=== PATIENT | male | born 1955 | race Caucasian/White ===

== ENCOUNTER 2016-09-09 11:03 | Inpatient (IN) | payer MEDICARE, MEDICAID ==
[~2016-09-09] VITALS: Ht 185.4 cm; Wt 59.0 kg
[~2016-09-09 11:03] MED LIST: DIPH50 PO; DIVA500T35 PO; FERR-89 PO; PANT40TA25 PO; QUET200T PO; SIMV-260 PO; TRIH5TAB2 PO
[2016-09-09 12:14] VITALS: BP 135/99
[2016-09-09] MEDS ORDERED: LORazepam 2 MG TABLET PO PRN (12:30)
[2016-09-09 13:35] VITALS: BP 96/64
[2016-09-09] MEDS: DIVALPROEX SODIUM 500 MG DR TABLET PO SCH ×2 (13:37→17:54)
[2016-09-09] MEDS: TRIHEXYPHENIDYL HCL 5 MG TABLET PO SCH ×2 (13:37→17:54)
[2016-09-09] MEDS: NICOTINE 14 MG/24 HOUR PATCH TD SCH (14:23)
[2016-09-09] MEDS ORDERED: -PHARMACY VACCINE NOTE- MISC ONE ×4 (14:30→18:15)
[2016-09-09 16:22] VITALS: BP 100/67
[2016-09-09] MEDS: FERROUS SULFATE 325 MG EC TABLET PO SCH (17:00)
[2016-09-09] MEDS ORDERED: HALOPERIDOL 10 MG TABLET PO SCH (21:00)
[2016-09-09] MEDS: SIMVASTATIN 20 MG TABLET PO SCH (21:00)
[2016-09-09] MEDS: QUEtiapine FUMARATE 300 MG TABLET PO SCH (21:02)
[2016-09-09] MEDS: DiphenhydrAMINE HCL 25 MG CAPSULE PO SCH (21:02)
[2016-09-10 00:10] VITALS: BP 115/76
[2016-09-10] MEDS: FERROUS SULFATE 325 MG EC TABLET PO SCH ×3 (07:00→17:00)
[2016-09-10 08:26] VITALS: BP 126/67
[2016-09-10] MEDS: DIVALPROEX SODIUM 500 MG DR TABLET PO SCH ×3 (09:53→16:25)
[2016-09-10] MEDS: TRIHEXYPHENIDYL HCL 5 MG TABLET PO SCH ×3 (09:53→16:25)
[2016-09-10] MEDS: PANTOPRAZOLE SODIUM 40 MG DR TABLET PO SCH (09:54)
[2016-09-10] MEDS: NICOTINE 14 MG/24 HOUR PATCH TD SCH (09:54)
[2016-09-10 16:08] VITALS: BP 98/60
[2016-09-10] MEDS: DiphenhydrAMINE HCL 25 MG CAPSULE PO SCH (20:14)
[2016-09-10] MEDS: QUEtiapine FUMARATE 300 MG TABLET PO SCH (20:14)
[2016-09-10] MEDS: SIMVASTATIN 20 MG TABLET PO SCH (21:00)
[2016-09-10] MEDS: HALOPERIDOL 5 MG TABLET PO SCH (21:00)
[2016-09-11 00:01] VITALS: BP 107/62
[2016-09-11] MEDS: FERROUS SULFATE 325 MG EC TABLET PO SCH ×3 (06:50→17:00)
[2016-09-11 08:33] VITALS: BP 101/64
[2016-09-11] MEDS: DIVALPROEX SODIUM 500 MG DR TABLET PO SCH ×3 (11:37→17:00)
[2016-09-11] MEDS: PANTOPRAZOLE SODIUM 40 MG DR TABLET PO SCH (11:37)
[2016-09-11] MEDS: TRIHEXYPHENIDYL HCL 5 MG TABLET PO SCH ×3 (11:37→17:00)
[2016-09-11] MEDS: NICOTINE 14 MG/24 HOUR PATCH TD SCH (11:37)
[2016-09-11 16:02] VITALS: BP 104/64
[2016-09-11] MEDS: HALOPERIDOL 5 MG TABLET PO SCH (20:36)
[2016-09-11] MEDS: SIMVASTATIN 20 MG TABLET PO SCH (20:36)
[2016-09-11] MEDS: DiphenhydrAMINE HCL 25 MG CAPSULE PO SCH (20:36)
[2016-09-12 05:53] VITALS: BP 110/70
[2016-09-12] MEDS: FERROUS SULFATE 325 MG EC TABLET PO SCH ×3 (06:32→16:51)
[2016-09-12 08:10] VITALS: BP 114/71
[2016-09-12 08:18] LABS: BASOPHILS # (AUTO) 0.03 K/uL (0.00-0.20); BASOPHILS % (AUTO) 0.4 % (0.0-2.0); EOSINOPHILS # (AUTO) 0.17 K/uL (0.00-0.70); EOSINOPHILS % (AUTO) 2.45 % (1.0-6.0); HEMATOCRIT 31.3 % (41-53); HEMOGLOBIN 10.5 g/dL (13.5-17.5); LYMPHOCYTES # (AUTO) 1.8 K/uL (1.0-4.8); MEAN CORPUSCULAR HEMOGLOBIN 32.8 pg (26.0-34.0); MEAN CORPUSCULAR HGB CONC 33.7 G/dL (31.0-37.0); MEAN CORPUSCULAR VOLUME 97 fL (80-100); MONOCYTES % (AUTO) 13.8 % (2.0-9.0); NEUTROPHILS # (AUTO) 4.1 K/uL (1.8-7.7); NEUTROPHILS % (AUTO) 58.3 % (40.0-70.0); PLATELET COUNT (AUTO) 125 K/uL (150-450); RED BLOOD CELL COUNT(AUTO) 3.22 MIL/uL (4.50-5.90); RED CELL DISTRIBUTION WIDTH 13.6 % (11.5-14.5); WHITE BLOOD COUNT (AUTO) 7.1 K/uL (4.5-11.0)
[2016-09-12 08:37] LABS: ALBUMIN 2.4 g/dL (3.4-5.0); BILIRUBIN,TOTAL 0.2 mg/dL (0.1-1.0); CALCIUM, TOTAL 7.9 mg/dL (8.8-10.5); CREATININE 1.27 mg/dL (0.60-1.30); POTASSIUM 4.5 mmol/L (3.5-5.1); TOTAL PROTEIN, SERUM 6.1 g/dL (6.4-8.2)
[2016-09-12] MEDS: NICOTINE 14 MG/24 HOUR PATCH TD SCH (09:00)
[2016-09-12] MEDS: TRIHEXYPHENIDYL HCL 5 MG TABLET PO SCH ×3 (09:00→16:51)
[2016-09-12] MEDS: DIVALPROEX SODIUM 500 MG DR TABLET PO SCH ×3 (09:00→16:50)
[2016-09-12] MEDS: PANTOPRAZOLE SODIUM 40 MG DR TABLET PO SCH (09:00)
[2016-09-12 16:07] VITALS: BP 101/68
[2016-09-12] MEDS: HALOPERIDOL 5 MG TABLET PO SCH (21:05)
[2016-09-12] MEDS: SIMVASTATIN 20 MG TABLET PO SCH (21:05)
[2016-09-12] MEDS: DiphenhydrAMINE HCL 25 MG CAPSULE PO SCH (21:05)
[2016-09-13] MEDS: FERROUS SULFATE 325 MG EC TABLET PO SCH ×3 (06:26→16:37)
[2016-09-13 06:39] VITALS: BP 111/65
[2016-09-13 08:14] VITALS: BP 103/46
[2016-09-13] MEDS: MULTIVITAMINS WITH IRON TABLET PO SCH (09:18)
[2016-09-13] MEDS: TRIHEXYPHENIDYL HCL 5 MG TABLET PO SCH ×3 (09:18→16:38)
[2016-09-13] MEDS: DIVALPROEX SODIUM 500 MG DR TABLET PO SCH ×3 (09:18→16:38)
[2016-09-13] MEDS: PANTOPRAZOLE SODIUM 40 MG DR TABLET PO SCH (09:19)
[2016-09-13] MEDS: NICOTINE 14 MG/24 HOUR PATCH TD SCH (09:19)
[2016-09-13 16:11] VITALS: BP 133/62
[2016-09-13] MEDS: SIMVASTATIN 20 MG TABLET PO SCH (20:35)
[2016-09-13] MEDS: DiphenhydrAMINE HCL 25 MG CAPSULE PO SCH (20:35)
[2016-09-13] MEDS: HALOPERIDOL 5 MG TABLET PO SCH (20:36)
[2016-09-14 00:10] VITALS: BP 93/52
[2016-09-14 05:38] VITALS: BP 103/62
[2016-09-14] MEDS: FERROUS SULFATE 325 MG EC TABLET PO SCH ×3 (06:06→16:15)
[2016-09-14 08:21] VITALS: BP 103/67
[2016-09-14] MEDS: NICOTINE 14 MG/24 HOUR PATCH TD SCH (09:00)
[2016-09-14] MEDS: TRIHEXYPHENIDYL HCL 5 MG TABLET PO SCH ×3 (09:35→16:15)
[2016-09-14] MEDS: PANTOPRAZOLE SODIUM 40 MG DR TABLET PO SCH (09:35)
[2016-09-14] MEDS: DIVALPROEX SODIUM 500 MG DR TABLET PO SCH ×3 (09:35→16:15)
[2016-09-14] MEDS: MULTIVITAMINS WITH IRON TABLET PO SCH (09:36)
[2016-09-14 16:04] VITALS: BP 104/61
[2016-09-14] MEDS: DiphenhydrAMINE HCL 25 MG CAPSULE PO SCH (20:07)
[2016-09-14] MEDS: HALOPERIDOL 5 MG TABLET PO SCH (20:07)
[2016-09-14] MEDS: SIMVASTATIN 20 MG TABLET PO SCH (20:07)
[2016-09-15 00:45] VITALS: BP 107/68
[2016-09-15] MEDS: FERROUS SULFATE 325 MG EC TABLET PO SCH ×3 (06:48→16:46)
[2016-09-15 08:46] VITALS: BP 119/74
[2016-09-15] MEDS: DIVALPROEX SODIUM 500 MG DR TABLET PO SCH ×3 (09:55→16:46)
[2016-09-15] MEDS: TRIHEXYPHENIDYL HCL 5 MG TABLET PO SCH ×3 (09:55→16:46)
[2016-09-15] MEDS: PANTOPRAZOLE SODIUM 40 MG DR TABLET PO SCH (09:55)
[2016-09-15] MEDS: MULTIVITAMINS WITH IRON TABLET PO SCH (09:55)
[2016-09-15] MEDS: NICOTINE 14 MG/24 HOUR PATCH TD SCH (09:55)
[2016-09-15 16:13] VITALS: BP 107/67
[2016-09-15] MEDS: HALOPERIDOL 5 MG TABLET PO SCH (20:33)
[2016-09-15] MEDS: DiphenhydrAMINE HCL 25 MG CAPSULE PO SCH (20:33)
[2016-09-15] MEDS: SIMVASTATIN 20 MG TABLET PO SCH (20:33)
[2016-09-16 00:10] VITALS: BP 104/67
[2016-09-16] MEDS: FERROUS SULFATE 325 MG EC TABLET PO SCH ×3 (07:08→16:44)
[2016-09-16 08:35] VITALS: BP 105/65
[2016-09-16] MEDS: TRIHEXYPHENIDYL HCL 5 MG TABLET PO SCH ×3 (09:30→16:44)
[2016-09-16] MEDS: DIVALPROEX SODIUM 500 MG DR TABLET PO SCH ×3 (09:30→16:44)
[2016-09-16] MEDS: PANTOPRAZOLE SODIUM 40 MG DR TABLET PO SCH (09:31)
[2016-09-16] MEDS: MULTIVITAMINS WITH IRON TABLET PO SCH (09:31)
[2016-09-16] MEDS: NICOTINE 14 MG/24 HOUR PATCH TD SCH (09:31)
[2016-09-16 16:46] VITALS: BP 101/61
[2016-09-16] MEDS: HALOPERIDOL 5 MG TABLET PO SCH (20:44)
[2016-09-16] MEDS: DiphenhydrAMINE HCL 25 MG CAPSULE PO SCH (20:44)
[2016-09-16] MEDS: SIMVASTATIN 20 MG TABLET PO SCH (20:44)
[2016-09-17] MEDS: FERROUS SULFATE 325 MG EC TABLET PO SCH ×3 (06:02→17:01)
[2016-09-17 06:08] VITALS: BP 101/64
[2016-09-17 08:19] VITALS: BP 113/52
[2016-09-17] MEDS: DIVALPROEX SODIUM 500 MG DR TABLET PO SCH ×3 (10:32→17:01)
[2016-09-17] MEDS: MULTIVITAMINS WITH IRON TABLET PO SCH (10:32)
[2016-09-17] MEDS: NICOTINE 14 MG/24 HOUR PATCH TD SCH (10:32)
[2016-09-17] MEDS: PANTOPRAZOLE SODIUM 40 MG DR TABLET PO SCH (10:32)
[2016-09-17] MEDS: TRIHEXYPHENIDYL HCL 5 MG TABLET PO SCH ×3 (10:32→17:01)
[2016-09-17 12:41] VITALS: BP 94/57
[2016-09-17 16:11] VITALS: BP 106/65
[2016-09-17] MEDS: DiphenhydrAMINE HCL 25 MG CAPSULE PO SCH (20:05)
[2016-09-17] MEDS: HALOPERIDOL 5 MG TABLET PO SCH (20:06)
[2016-09-17] MEDS: SIMVASTATIN 20 MG TABLET PO SCH (20:06)
[2016-09-18] MEDS: FERROUS SULFATE 325 MG EC TABLET PO SCH ×3 (06:51→16:43)
[2016-09-18 06:52] VITALS: BP 103/63
[2016-09-18 08:26] VITALS: BP 89/48
[2016-09-18] MEDS: NICOTINE 14 MG/24 HOUR PATCH TD SCH (08:59)
[2016-09-18] MEDS: TRIHEXYPHENIDYL HCL 5 MG TABLET PO SCH ×3 (08:59→16:42)
[2016-09-18] MEDS: PANTOPRAZOLE SODIUM 40 MG DR TABLET PO SCH (08:59)
[2016-09-18] MEDS: DIVALPROEX SODIUM 500 MG DR TABLET PO SCH ×3 (08:59→17:00)
[2016-09-18] MEDS: MULTIVITAMINS WITH IRON TABLET PO SCH (08:59)
[2016-09-18 11:19] VITALS: BP 95/60
[2016-09-18 17:07] VITALS: BP 101/61
[2016-09-18 20:15] VITALS: BP 106/66
[2016-09-18] MEDS: SIMVASTATIN 20 MG TABLET PO SCH (20:20)
[2016-09-18] MEDS: DiphenhydrAMINE HCL 25 MG CAPSULE PO SCH (20:20)
[2016-09-18] MEDS: HALOPERIDOL 5 MG TABLET PO SCH (20:21)
[2016-09-19 03:30] VITALS: BP 105/72
[2016-09-19] MEDS: FERROUS SULFATE 325 MG EC TABLET PO SCH ×3 (06:57→16:46)
[2016-09-19 08:34] VITALS: BP 117/75
[2016-09-19] MEDS: DIVALPROEX SODIUM 500 MG DR TABLET PO SCH ×3 (08:47→16:46)
[2016-09-19] MEDS: TRIHEXYPHENIDYL HCL 5 MG TABLET PO SCH ×3 (08:47→16:46)
[2016-09-19] MEDS: PANTOPRAZOLE SODIUM 40 MG DR TABLET PO SCH (08:47)
[2016-09-19] MEDS: MULTIVITAMINS WITH IRON TABLET PO SCH (08:47)
[2016-09-19] MEDS: NICOTINE 14 MG/24 HOUR PATCH TD SCH (09:00)
[2016-09-19 16:25] VITALS: BP 105/68
[2016-09-19] MEDS: HALOPERIDOL 5 MG TABLET PO SCH (20:40)
[2016-09-19] MEDS: DiphenhydrAMINE HCL 25 MG CAPSULE PO SCH (20:40)
[2016-09-19] MEDS: SIMVASTATIN 20 MG TABLET PO SCH (20:40)
[2016-09-20 03:30] VITALS: BP 103/60
[2016-09-20] MEDS: FERROUS SULFATE 325 MG EC TABLET PO SCH ×3 (06:39→17:08)
[2016-09-20 08:23] VITALS: BP 101/60
[2016-09-20] MEDS: DIVALPROEX SODIUM 500 MG DR TABLET PO SCH ×3 (08:41→17:06)
[2016-09-20] MEDS: PANTOPRAZOLE SODIUM 40 MG DR TABLET PO SCH (08:41)
[2016-09-20] MEDS: MULTIVITAMINS WITH IRON TABLET PO SCH (08:41)
[2016-09-20] MEDS: NICOTINE 14 MG/24 HOUR PATCH TD SCH (08:42)
[2016-09-20] MEDS: TRIHEXYPHENIDYL HCL 5 MG TABLET PO SCH ×3 (08:42→17:08)
[2016-09-20 16:15] VITALS: BP 100/62
[2016-09-20] MEDS: SIMVASTATIN 20 MG TABLET PO SCH (20:39)
[2016-09-20] MEDS: HALOPERIDOL 5 MG TABLET PO SCH (20:39)
[2016-09-20] MEDS: DiphenhydrAMINE HCL 25 MG CAPSULE PO SCH (20:39)
[2016-09-20] MEDS ORDERED: HALO10 PO (23:23)
[2016-09-21 00:24] VITALS: BP 100/60
[2016-09-21] MEDS: FERROUS SULFATE 325 MG EC TABLET PO SCH (06:23)
[2016-09-21] MEDS: NICOTINE 14 MG/24 HOUR PATCH TD SCH (09:00)
[2016-09-21 09:11] VITALS: BP 108/62
[2016-09-21] MEDS: PANTOPRAZOLE SODIUM 40 MG DR TABLET PO SCH (09:33)
[2016-09-21] MEDS: TRIHEXYPHENIDYL HCL 5 MG TABLET PO SCH (09:33)
[2016-09-21] MEDS: MULTIVITAMINS WITH IRON TABLET PO SCH (09:33)
[2016-09-21] MEDS: DIVALPROEX SODIUM 500 MG DR TABLET PO SCH (09:33)
== END 2016-09-21 10:15 | disposition home or self-care (01) | DRG 885 ==
LOC: B2X 12:43
PROVIDERS: ADMIT Psychiatry & Neurology Psychiatry; ATTEND Psychiatry & Neurology Psychiatry
DX: F20.0 Paranoid schizophrenia (principal); Z68.1 Body mass index [BMI] 19.9 or less, adult; E46 Unspecified protein-calorie malnutrition; E78.5 Hyperlipidemia, unspecified; B19.20 Unspecified viral hepatitis C without hepatic coma; K21.9 Gastro-esophageal reflux disease without esophagitis; D64.9 Anemia, unspecified; F19.90 Other psychoactive substance use, unspecified, uncomplicated; F41.9 Anxiety disorder, unspecified; Z98.890 Other specified postprocedural states; Z88.8 Allergy status to other drugs, medicaments and biological substances

== ENCOUNTER 2016-11-10 12:24 | Inpatient (IN) | payer MEDICARE, MEDICAID ==
[~2016-11-10] VITALS: Ht 185.4 cm; Wt 65.0 kg
[~2016-11-10 12:24] MED LIST changes: -FERR-89 PO; +FERS325 PO; +HALO10 PO; -QUET200T PO; -SIMV-260 PO; +SIMV20 PO
[2016-11-10] MEDS ORDERED: LORazepam 2 MG TABLET PO PRN (13:00)
[2016-11-10] MEDS ORDERED: HALOPERIDOL 5 MG TABLET PO PRN (13:00)
[2016-11-10 14:19] VITALS: BP 102/60
[2016-11-10 15:10] VITALS: BP 102/65
[2016-11-10] MEDS: TRIHEXYPHENIDYL HCL 5 MG TABLET PO SCH ×2 (16:57→17:00)
[2016-11-10 16:58] VITALS: BP 106/68
[2016-11-10] MEDS: DIVALPROEX SODIUM 500 MG DR TABLET PO SCH ×2 (16:58→17:00)
[2016-11-10] MEDS: FERROUS SULFATE 325 MG EC TABLET PO SCH (16:58)
[2016-11-10] MEDS ORDERED: FERROUS SULFATE 325 MG EC TABLET PO SCH (17:00)
[2016-11-10] MEDS: DiphenhydrAMINE HCL 25 MG CAPSULE PO SCH (20:05)
[2016-11-10] MEDS: SIMVASTATIN 20 MG TABLET PO SCH (20:06)
[2016-11-10] MEDS: HALOPERIDOL 5 MG TABLET PO SCH (20:06)
[2016-11-10] MEDS ORDERED: SIMVASTATIN 20 MG TABLET PO SCH (21:00)
[2016-11-11 00:10] VITALS: BP 102/62
[2016-11-11] MEDS: FERROUS SULFATE 325 MG EC TABLET PO SCH ×3 (06:30→17:10)
[2016-11-11 08:45] VITALS: BP 104/68
[2016-11-11] MEDS ORDERED: PANTOPRAZOLE SODIUM 40 MG DR TABLET PO SCH (09:00)
[2016-11-11] MEDS: TRIHEXYPHENIDYL HCL 5 MG TABLET PO SCH ×3 (09:13→17:10)
[2016-11-11] MEDS: MULTIVITAMINS WITH IRON TABLET PO SCH (09:14)
[2016-11-11] MEDS: PANTOPRAZOLE SODIUM 40 MG DR TABLET PO SCH (09:14)
[2016-11-11] MEDS: DIVALPROEX SODIUM 500 MG DR TABLET PO SCH ×3 (09:14→17:10)
[2016-11-11 16:06] VITALS: BP 102/75
[2016-11-11] MEDS: DiphenhydrAMINE HCL 25 MG CAPSULE PO SCH (20:05)
[2016-11-11] MEDS: SIMVASTATIN 20 MG TABLET PO SCH (20:05)
[2016-11-11] MEDS: HALOPERIDOL 5 MG TABLET PO SCH (20:05)
[2016-11-12 04:11] VITALS: BP 132/87
[2016-11-12] MEDS: FERROUS SULFATE 325 MG EC TABLET PO SCH ×3 (06:08→16:33)
[2016-11-12 07:35] LABS: BASOPHILS # (AUTO) 0.03 K/uL (0.00-0.20); BASOPHILS % (AUTO) 0.7 % (0.0-2.0); EOSINOPHILS # (AUTO) 0.09 K/uL (0.00-0.70); EOSINOPHILS % (AUTO) 1.89 % (1.0-6.0); HEMATOCRIT 30.8 % (41-53); HEMOGLOBIN 10.3 g/dL (13.5-17.5); LYMPHOCYTES # (AUTO) 1.7 K/uL (1.0-4.8); MEAN CORPUSCULAR HEMOGLOBIN 32.9 pg (26.0-34.0); MEAN CORPUSCULAR HGB CONC 33.5 G/dL (31.0-37.0); MEAN CORPUSCULAR VOLUME 98 fL (80-100); MONOCYTES # (AUTO) 0.8 K/uL (0.1-1.0); MONOCYTES % (AUTO) 17.4 % (2.0-9.0); PLATELET COUNT (AUTO) 104 K/uL (150-450); RED BLOOD CELL COUNT(AUTO) 3.13 MIL/uL (4.50-5.90); RED CELL DISTRIBUTION WIDTH 14.5 % (11.5-14.5); WHITE BLOOD COUNT (AUTO) 4.6 K/uL (4.5-11.0)
[2016-11-12 08:10] LABS: CHOL/HDL RATIO 3.1 (4.2-7.3)
[2016-11-12] MEDS: TRIHEXYPHENIDYL HCL 5 MG TABLET PO SCH ×3 (09:02→16:33)
[2016-11-12] MEDS: DIVALPROEX SODIUM 500 MG DR TABLET PO SCH ×3 (09:02→16:33)
[2016-11-12] MEDS: MULTIVITAMINS WITH IRON TABLET PO SCH (09:02)
[2016-11-12] MEDS: PANTOPRAZOLE SODIUM 40 MG DR TABLET PO SCH (09:02)
[2016-11-12 09:19] VITALS: BP 113/60
[2016-11-12] MEDS: DiphenhydrAMINE HCL 25 MG CAPSULE PO SCH (20:20)
[2016-11-12] MEDS: SIMVASTATIN 20 MG TABLET PO SCH (20:20)
[2016-11-12] MEDS: HALOPERIDOL 5 MG TABLET PO SCH (20:20)
[2016-11-13 01:14] VITALS: BP 113/70
[2016-11-13] MEDS: FERROUS SULFATE 325 MG EC TABLET PO SCH ×3 (06:40→17:29)
[2016-11-13 08:28] VITALS: BP 109/67
[2016-11-13 08:41] LABS: BASOPHILS % (AUTO) 0.4 % (0.0-2.0); EOSINOPHILS % (AUTO) 1.8 % (1.0-6.0); HEMATOCRIT 32.3 % (41-53); HEMOGLOBIN 10.6 g/dL (13.5-17.5); LYMPHOCYTES # (AUTO) 1.8 K/uL (1.0-4.8); LYMPHOCYTES % (AUTO) 38.1 % (22.0-44.0); MEAN CORPUSCULAR HEMOGLOBIN 32.6 pg (26.0-34.0); MEAN CORPUSCULAR HGB CONC 32.9 G/dL (31.0-37.0); MEAN CORPUSCULAR VOLUME 99 fL (80-100); MONOCYTES # (AUTO) 0.7 K/uL (0.1-1.0); MONOCYTES % (AUTO) 14.1 % (2.0-9.0); NEUTROPHILS # (AUTO) 2.1 K/uL (1.8-7.7); NEUTROPHILS % (AUTO) 45.6 % (40.0-70.0); PLATELET COUNT (AUTO) 105 K/uL (150-450); RED BLOOD CELL COUNT(AUTO) 3.26 MIL/uL (4.50-5.90); RED CELL DISTRIBUTION WIDTH 15.3 % (11.5-14.5); WHITE BLOOD COUNT (AUTO) 4.7 K/uL (4.5-11.0)
[2016-11-13] MEDS: TRIHEXYPHENIDYL HCL 5 MG TABLET PO SCH ×3 (08:54→17:29)
[2016-11-13] MEDS: DIVALPROEX SODIUM 500 MG DR TABLET PO SCH ×3 (08:54→17:28)
[2016-11-13] MEDS: MULTIVITAMINS WITH IRON TABLET PO SCH (08:54)
[2016-11-13] MEDS: PANTOPRAZOLE SODIUM 40 MG DR TABLET PO SCH (08:54)
[2016-11-13 16:15] VITALS: BP 110/68
[2016-11-13] MEDS: HALOPERIDOL 5 MG TABLET PO SCH (20:48)
[2016-11-13] MEDS: DiphenhydrAMINE HCL 25 MG CAPSULE PO SCH (20:49)
[2016-11-13] MEDS: SIMVASTATIN 20 MG TABLET PO SCH (20:49)
[2016-11-14 00:28] VITALS: BP 138/86
[2016-11-14] MEDS: FERROUS SULFATE 325 MG EC TABLET PO SCH ×3 (06:40→16:16)
[2016-11-14 08:48] VITALS: BP 103/57
[2016-11-14] MEDS: PANTOPRAZOLE SODIUM 40 MG DR TABLET PO SCH (09:07)
[2016-11-14] MEDS: MULTIVITAMINS WITH IRON TABLET PO SCH (09:07)
[2016-11-14] MEDS: DIVALPROEX SODIUM 500 MG DR TABLET PO SCH ×3 (09:07→16:16)
[2016-11-14] MEDS: TRIHEXYPHENIDYL HCL 5 MG TABLET PO SCH ×3 (09:07→16:16)
[2016-11-14 16:15] VITALS: BP 112/78
[2016-11-14] MEDS: DiphenhydrAMINE HCL 25 MG CAPSULE PO SCH (20:06)
[2016-11-14] MEDS: HALOPERIDOL 5 MG TABLET PO SCH (20:06)
[2016-11-14] MEDS: SIMVASTATIN 20 MG TABLET PO SCH (20:06)
[2016-11-15 00:05] VITALS: BP 108/77
[2016-11-15] MEDS: FERROUS SULFATE 325 MG EC TABLET PO SCH ×3 (06:36→17:00)
[2016-11-15 08:22] VITALS: BP 136/60
[2016-11-15] MEDS: TRIHEXYPHENIDYL HCL 5 MG TABLET PO SCH ×3 (08:33→16:59)
[2016-11-15] MEDS: PANTOPRAZOLE SODIUM 40 MG DR TABLET PO SCH (08:33)
[2016-11-15] MEDS: DIVALPROEX SODIUM 500 MG DR TABLET PO SCH ×3 (08:34→16:59)
[2016-11-15] MEDS: MULTIVITAMINS WITH IRON TABLET PO SCH (08:34)
[2016-11-15 16:09] VITALS: BP 103/60
[2016-11-15] MEDS: DiphenhydrAMINE HCL 25 MG CAPSULE PO SCH (20:19)
[2016-11-15] MEDS: SIMVASTATIN 20 MG TABLET PO SCH (20:19)
[2016-11-15] MEDS: HALOPERIDOL 5 MG TABLET PO SCH (20:19)
[2016-11-16 00:28] VITALS: BP 103/62
[2016-11-16] MEDS: FERROUS SULFATE 325 MG EC TABLET PO SCH ×3 (06:13→16:50)
[2016-11-16 08:05] VITALS: BP 104/61
[2016-11-16] MEDS: MULTIVITAMINS WITH IRON TABLET PO SCH (08:56)
[2016-11-16] MEDS: DIVALPROEX SODIUM 500 MG DR TABLET PO SCH ×3 (08:56→16:50)
[2016-11-16] MEDS: PANTOPRAZOLE SODIUM 40 MG DR TABLET PO SCH (08:57)
[2016-11-16] MEDS: TRIHEXYPHENIDYL HCL 5 MG TABLET PO SCH ×3 (08:57→16:50)
[2016-11-16 17:27] VITALS: BP 115/74
[2016-11-16] MEDS: DiphenhydrAMINE HCL 25 MG CAPSULE PO SCH (20:21)
[2016-11-16] MEDS: SIMVASTATIN 20 MG TABLET PO SCH (20:21)
[2016-11-16] MEDS: HALOPERIDOL 5 MG TABLET PO SCH (20:21)
[2016-11-17 02:46] VITALS: BP 116/61
[2016-11-17] MEDS: FERROUS SULFATE 325 MG EC TABLET PO SCH ×2 (06:34→12:13)
[2016-11-17] MEDS: TRIHEXYPHENIDYL HCL 5 MG TABLET PO SCH ×2 (08:31→12:57)
[2016-11-17] MEDS: DIVALPROEX SODIUM 500 MG DR TABLET PO SCH ×2 (08:31→12:57)
[2016-11-17] MEDS: MULTIVITAMINS WITH IRON TABLET PO SCH (08:31)
[2016-11-17] MEDS: PANTOPRAZOLE SODIUM 40 MG DR TABLET PO SCH (08:34)
[2016-11-17 08:53] VITALS: BP 100/61
== END 2016-11-17 15:30 | disposition home or self-care (01) | DRG 885 ==
LOC: B2S 13:23 → EDSTATUS 13:38 → B2S 11-11 07:38
PROVIDERS: ADMIT Psychiatry & Neurology Psychiatry; ATTEND Psychiatry & Neurology Psychiatry
DX: F20.0 Paranoid schizophrenia (principal); E78.5 Hyperlipidemia, unspecified; N18.9 Chronic kidney disease, unspecified; B19.20 Unspecified viral hepatitis C without hepatic coma; Z79.899 Other long term (current) drug therapy; Z98.890 Other specified postprocedural states; Z88.8 Allergy status to other drugs, medicaments and biological substances

== ENCOUNTER 2018-01-09 23:30 | Inpatient (IN) | payer MEDICARE, MEDICAID ==
[~2018-01-09] VITALS: Ht 182.9 cm; Wt 63.3 kg
[~2018-01-09 23:30] MED LIST changes: +FERR-89 PO; -FERS325 PO; +SIMV-260 PO; -SIMV20 PO
[2018-01-09 23:50] VITALS: BP 112/72
[2018-01-10] MEDS ORDERED: ZOLPIDEM TARTRATE 10 MG TABLET PO PRN
[2018-01-10 01:51] VITALS: BP 121/76
[2018-01-10 07:51] LABS: BASOPHILS % (AUTO) 0.5 % (0.0-2.0); EOSINOPHILS % (AUTO) 3.5 % (1.0-6.0); HEMATOCRIT 33.5 % (41-53); LYMPHOCYTES # (AUTO) 1.3 K/uL (1.0-4.8); LYMPHOCYTES % (AUTO) 43.7 % (22.0-44.0); MEAN CORPUSCULAR HEMOGLOBIN 33.7 pg (26.0-34.0); MEAN CORPUSCULAR HGB CONC 35.9 G/dL (31.0-37.0); MEAN CORPUSCULAR VOLUME 94 fL (80-100); MONOCYTES # (AUTO) 0.4 K/uL (0.1-1.0); MONOCYTES % (AUTO) 14.6 % (2.0-9.0); NEUTROPHILS # (AUTO) 1.2 K/uL (1.8-7.7); NEUTROPHILS % (AUTO) 37.7 % (40.0-70.0); RED BLOOD CELL COUNT(AUTO) 3.57 MIL/uL (4.50-5.90); RED CELL DISTRIBUTION WIDTH 12.9 % (11.5-14.5)
[2018-01-10 08:29] LABS: BILIRUBIN,TOTAL 0.3 mg/dL (0.1-1.0); CALCIUM, TOTAL 8.7 mg/dL (8.8-10.5); CHOL/HDL RATIO 3.1 (4.2-7.3); CREATININE 1.47 mg/dL (0.60-1.30); FREE T4 (FREE THYROXINE) 1.12 ng/dL (0.76-1.46); POTASSIUM 3.9 mmol/L (3.5-5.1); THYROID STIMULATING HORMONE 1.22 uIU/mL (0.36-3.74)
[2018-01-10 08:33] LABS: HEMOGLOBIN A1C 4.9 % (4.5-6.2)
[2018-01-10 08:34] LABS: PLATELET COUNT (AUTO) 81 K/uL (150-450); PLATELET MORPHOLOGY COMMENT GIANT PLTS PRESENT
[2018-01-10 08:51] VITALS: BP 125/78
[2018-01-10 17:00] VITALS: BP 122/69
[2018-01-11] MEDS: MULTIVITAMINS WITH MINERALS, THERAPEUTIC TABLET PO SCH (08:26)
[2018-01-11 08:30] VITALS: BP 109/58
[2018-01-11 16:47] VITALS: BP 113/77
[2018-01-11] MEDS ORDERED: HALOPERIDOL DECANOATE 100 MG/ML VIAL IM SCH (19:00)
[2018-01-12] MEDS: HALOPERIDOL 5 MG TABLET PO PRN ×2 (01:32→14:00)
[2018-01-12 04:39] VITALS: BP 110/65
[2018-01-12 08:30] VITALS: BP 132/86
[2018-01-12] MEDS: TRIHEXYPHENIDYL HCL 2 MG TABLET PO SCH ×2 (08:41→16:15)
[2018-01-12] MEDS: DIVALPROEX SODIUM 500 MG DR TABLET PO SCH ×3 (08:41→16:15)
[2018-01-12] MEDS: MULTIVITAMINS WITH MINERALS, THERAPEUTIC TABLET PO SCH (08:42)
[2018-01-12] MEDS: LORazepam 1 MG TABLET PO PRN (14:00)
[2018-01-12 17:00] VITALS: BP 103/66
[2018-01-13 00:05] VITALS: BP 118/74
[2018-01-13] MEDS: DIVALPROEX SODIUM 500 MG DR TABLET PO SCH ×3 (08:34→16:23)
[2018-01-13] MEDS: MULTIVITAMINS WITH MINERALS, THERAPEUTIC TABLET PO SCH (08:34)
[2018-01-13] MEDS: TRIHEXYPHENIDYL HCL 2 MG TABLET PO SCH ×2 (08:34→16:21)
[2018-01-13 12:21] VITALS: BP 105/67
[2018-01-13 16:36] VITALS: BP 103/67
[2018-01-14 03:05] VITALS: BP 110/72
[2018-01-14] MEDS: TRIHEXYPHENIDYL HCL 2 MG TABLET PO SCH ×2 (08:29→16:22)
[2018-01-14] MEDS: DIVALPROEX SODIUM 500 MG DR TABLET PO SCH ×3 (08:29→16:22)
[2018-01-14] MEDS: MULTIVITAMINS WITH MINERALS, THERAPEUTIC TABLET PO SCH (08:29)
[2018-01-14 08:52] VITALS: BP 108/58
[2018-01-14 20:54] VITALS: BP 103/64
[2018-01-15 00:05] VITALS: BP 120/75
[2018-01-15 08:10] VITALS: BP 111/70
[2018-01-15] MEDS: TRIHEXYPHENIDYL HCL 2 MG TABLET PO SCH ×2 (08:24→16:14)
[2018-01-15] MEDS: MULTIVITAMINS WITH MINERALS, THERAPEUTIC TABLET PO SCH (08:24)
[2018-01-15] MEDS: DIVALPROEX SODIUM 500 MG DR TABLET PO SCH ×3 (08:24→16:15)
[2018-01-15] MEDS: LORazepam 1 MG TABLET PO PRN ×2 (12:14→20:13)
[2018-01-15 17:00] VITALS: BP 115/75
[2018-01-15] MEDS: HALOPERIDOL 5 MG TABLET PO PRN (20:13)
[2018-01-16 08:05] VITALS: BP 128/74
[2018-01-16] MEDS: MULTIVITAMINS WITH MINERALS, THERAPEUTIC TABLET PO SCH (08:57)
[2018-01-16] MEDS: DIVALPROEX SODIUM 500 MG DR TABLET PO SCH ×3 (08:57→16:38)
[2018-01-16] MEDS: TRIHEXYPHENIDYL HCL 2 MG TABLET PO SCH ×2 (08:57→16:38)
[2018-01-16 16:45] VITALS: BP 98/62
[2018-01-17 03:17] VITALS: BP 110/68
[2018-01-17] MEDS ORDERED: TRIH2TAB3 PO (06:51)
[2018-01-17] MEDS: DIVALPROEX SODIUM 500 MG DR TABLET PO SCH ×2 (08:10→12:27)
[2018-01-17] MEDS: MULTIVITAMINS WITH MINERALS, THERAPEUTIC TABLET PO SCH (08:10)
[2018-01-17] MEDS: TRIHEXYPHENIDYL HCL 2 MG TABLET PO SCH (08:10)
[2018-01-17] MEDS ORDERED: HALO100V4 IM (11:40)
[2018-01-17] MEDS ORDERED: MULT-248 PO (11:43)
[2018-01-17 14:55] VITALS: BP 108/68
== END 2018-01-17 15:00 | disposition home or self-care (01) | DRG 885 ==
LOC: EDSTATUS 23:45 → 3EX 01-10 00:02
PROVIDERS: ADMIT Psychiatry & Neurology Psychiatry; ATTEND Psychiatry & Neurology Psychiatry
DX: F20.0 Paranoid schizophrenia (principal); B19.20 Unspecified viral hepatitis C without hepatic coma; D64.9 Anemia, unspecified; F12.90 Cannabis use, unspecified, uncomplicated; F32.9 Major depressive disorder, single episode, unspecified; K21.9 Gastro-esophageal reflux disease without esophagitis
CPT/HCPCS: 83036; 84439; 84443; 99285; J1631

== ENCOUNTER 2018-10-25 14:12 | Emergency (ER) | payer MEDICARE, OTHER ==
[~2018-10-25] VITALS: Ht 188 cm; Wt 86.4 kg
[~2018-10-25 14:12] MED LIST changes: -DIPH50 PO; +DIVA-78 PO; -DIVA500T35 PO; -FERR-89 PO; -HALO10 PO; +HALO100V4 IM; +MULT-248 PO; -PANT40TA25 PO; -SIMV-260 PO; +TRIH2TAB3 PO; -TRIH5TAB2 PO
[2018-10-25 16:55] VITALS: BP 116/73
== END 2018-10-25 16:55 | disposition home or self-care (01) ==
LOC: EMS 14:12
DX: L03.115 Cellulitis of right lower limb (principal); J44.9 Chronic obstructive pulmonary disease, unspecified; K21.9 Gastro-esophageal reflux disease without esophagitis; F20.9 Schizophrenia, unspecified; Z86.19 Personal history of other infectious and parasitic diseases; Z79.899 Other long term (current) drug therapy; Z88.8 Allergy status to other drugs, medicaments and biological substances

== ENCOUNTER 2018-11-11 18:26 | Emergency (ER) | payer MEDICARE, OTHER ==
[~2018-11-11] VITALS: Ht 185.4 cm; Wt 86.4 kg
[2018-11-11] MEDS ORDERED: PERTUSS(ACELL),DIPH,TET VAC/PF 0.5 ML VIAL IM ONE (20:00)
[2018-11-11 20:25] VITALS: BP 116/82
== END 2018-11-11 20:28 | disposition home or self-care (01) ==
LOC: EMS 18:29
DX: S90.511A Abrasion, right ankle, initial encounter (principal); Z88.8 Allergy status to other drugs, medicaments and biological substances; J44.9 Chronic obstructive pulmonary disease, unspecified; K21.9 Gastro-esophageal reflux disease without esophagitis; F20.9 Schizophrenia, unspecified; W51.XXXA Accidental striking against or bumped into by another person, initial encounter; Y93.89 Activity, other specified; Y92.89 Other specified places as the place of occurrence of the external cause; Y99.8 Other external cause status
CPT/HCPCS: 90471; 90715

== ENCOUNTER 2018-11-27 10:34 | Inpatient (IN) | payer MEDICARE, MEDICAID ==
[2018-11-27 11:09] VITALS: BP 103/68
[2018-11-27] MEDS ORDERED: HALO100A IM (11:37)
[2018-11-27] MEDS ORDERED: HALOPERIDOL 5 MG TABLET PO PRN (12:00)
[2018-11-27] MEDS ORDERED: ZOLPIDEM TARTRATE 10 MG TABLET PO PRN (12:00)
[2018-11-27 13:08] VITALS: BP 121/75
[2018-11-27] MEDS: DIVALPROEX SODIUM 500 MG DR TABLET PO SCH ×2 (15:08→16:48)
[2018-11-27 15:25] LABS: GLUCOMETER DEV NAME(LOC) BV2S.; GLUCOSE,POINT OF CARE 96 MG/DL (70-110)
[2018-11-27 16:35] VITALS: BP 105/68
[2018-11-27] MEDS: TRIHEXYPHENIDYL HCL 2 MG TABLET PO SCH (16:48)
[2018-11-27] MEDS: HALOPERIDOL 10 MG TABLET PO SCH (20:46)
[2018-11-28 01:07] VITALS: BP 109/65
[2018-11-28] MEDS ORDERED: PNEUMOCOCCAL VACCINE POLYVALENT 0.5 ML VIAL [PPSV23] IM ONE (06:00)
[2018-11-28 08:27] VITALS: BP 100/69
[2018-11-28 08:28] LABS: BASOPHILS % (AUTO) 0.6 % (0.0-2.0); EOSINOPHILS % (AUTO) 2.5 % (1.0-6.0); HEMATOCRIT 33.7 % (41-53); HEMOGLOBIN 11.6 g/dL (13.5-17.5); LYMPHOCYTES # (AUTO) 1.6 K/uL (1.0-4.8); LYMPHOCYTES % (AUTO) 36.8 % (22.0-44.0); MEAN CORPUSCULAR HGB CONC 34.5 G/dL (31.0-37.0); MEAN CORPUSCULAR VOLUME 93 fL (80-100); MONOCYTES # (AUTO) 0.6 K/uL (0.1-1.0); NEUTROPHILS % (AUTO) 46.1 % (40.0-70.0); PLATELET COUNT (AUTO) 106 K/uL (150-450); RED BLOOD CELL COUNT(AUTO) 3.63 MIL/uL (4.50-5.90); RED CELL DISTRIBUTION WIDTH 12.7 % (11.5-14.5)
[2018-11-28 08:43] LABS: HEMOGLOBIN A1C 5.7 % (4.5-6.2)
[2018-11-28 09:01] LABS: BILIRUBIN,TOTAL 0.5 mg/dL (0.1-1.0); CALCIUM, TOTAL 8.7 mg/dL (8.8-10.5); CHOL/HDL RATIO 3.7 (4.2-7.3); CREATININE 1.64 mg/dL (0.60-1.30); FREE T4 (FREE THYROXINE) 1.28 ng/dL (0.76-1.46); POTASSIUM 4.1 mmol/L (3.5-5.1); THYROID STIMULATING HORMONE 0.64 uIU/mL (0.36-3.74); TOTAL PROTEIN, SERUM 7.2 g/dL (6.4-8.2)
[2018-11-28] MEDS: DIVALPROEX SODIUM 500 MG DR TABLET PO SCH ×3 (09:50→17:29)
[2018-11-28] MEDS: TRIHEXYPHENIDYL HCL 2 MG TABLET PO SCH ×2 (09:50→17:29)
[2018-11-28 16:36] VITALS: BP 108/62
[2018-11-28] MEDS: HALOPERIDOL 10 MG TABLET PO SCH (21:03)
[2018-11-29 00:54] VITALS: BP 105/66
[2018-11-29] MEDS ORDERED: IBUPROFEN 600 MG TABLET PO PRN (01:45)
[2018-11-29 08:16] VITALS: BP 101/61
[2018-11-29] MEDS: TRIHEXYPHENIDYL HCL 2 MG TABLET PO SCH ×2 (08:40→17:30)
[2018-11-29] MEDS: DIVALPROEX SODIUM 500 MG DR TABLET PO SCH ×3 (08:40→17:30)
[2018-11-29 08:59] LABS: BASOPHILS % (AUTO) 0.5 % (0.0-2.0); EOSINOPHILS % (AUTO) 2.2 % (1.0-6.0); HEMATOCRIT 34.1 % (41-53); HEMOGLOBIN 11.7 g/dL (13.5-17.5); LYMPHOCYTES # (AUTO) 1.8 K/uL (1.0-4.8); MEAN CORPUSCULAR HEMOGLOBIN 31.9 pg (26.0-34.0); MEAN CORPUSCULAR HGB CONC 34.1 G/dL (31.0-37.0); MEAN CORPUSCULAR VOLUME 94 fL (80-100); MONOCYTES # (AUTO) 0.7 K/uL (0.1-1.0); MONOCYTES % (AUTO) 13.1 % (2.0-9.0); NEUTROPHILS # (AUTO) 2.7 K/uL (1.8-7.7); NEUTROPHILS % (AUTO) 51.2 % (40.0-70.0); PLATELET COUNT (AUTO) 98 K/uL (150-450); RED BLOOD CELL COUNT(AUTO) 3.65 MIL/uL (4.50-5.90); RED CELL DISTRIBUTION WIDTH 12.7 % (11.5-14.5)
[2018-11-29 09:14] LABS: BILIRUBIN,TOTAL 0.3 mg/dL (0.1-1.0); CALCIUM, TOTAL 8.9 mg/dL (8.8-10.5); CREATININE 1.53 mg/dL (0.60-1.30); TOTAL PROTEIN, SERUM 7.7 g/dL (6.4-8.2)
[2018-11-29 16:23] VITALS: BP 108/60
[2018-11-29] MEDS: HALOPERIDOL 10 MG TABLET PO SCH (20:55)
[2018-11-30 01:22] VITALS: BP 108/72
[2018-11-30 08:19] VITALS: BP 106/58
[2018-11-30] MEDS: DIVALPROEX SODIUM 500 MG DR TABLET PO SCH ×3 (09:07→16:56)
[2018-11-30] MEDS: TRIHEXYPHENIDYL HCL 2 MG TABLET PO SCH ×2 (09:07→16:56)
[2018-11-30 16:30] VITALS: BP 112/67
[2018-11-30] MEDS: HALOPERIDOL 10 MG TABLET PO SCH (20:05)
[2018-12-01 03:35] VITALS: BP 117/75
[2018-12-01] MEDS: TRIHEXYPHENIDYL HCL 2 MG TABLET PO SCH ×2 (08:11→16:59)
[2018-12-01] MEDS: DIVALPROEX SODIUM 500 MG DR TABLET PO SCH ×3 (08:11→16:59)
[2018-12-01 08:57] VITALS: BP 110/63
[2018-12-01] MEDS: LORazepam 2 MG TABLET PO PRN (13:30)
[2018-12-01 16:17] VITALS: BP 110/67
[2018-12-01] MEDS: HALOPERIDOL 10 MG TABLET PO SCH (20:59)
[2018-12-02 05:57] VITALS: BP 103/73
[2018-12-02 08:24] VITALS: BP 102/56
[2018-12-02] MEDS: DIVALPROEX SODIUM 500 MG DR TABLET PO SCH ×3 (09:56→16:26)
[2018-12-02] MEDS: TRIHEXYPHENIDYL HCL 2 MG TABLET PO SCH ×2 (09:56→16:26)
[2018-12-02 16:43] VITALS: BP 109/63
[2018-12-02] MEDS: HALOPERIDOL 10 MG TABLET PO SCH (20:41)
[2018-12-03 02:13] VITALS: BP 124/84
[2018-12-03] MEDS: TRIHEXYPHENIDYL HCL 2 MG TABLET PO SCH ×2 (09:04→17:35)
[2018-12-03] MEDS: LORazepam 2 MG TABLET PO PRN (09:04)
[2018-12-03] MEDS: DIVALPROEX SODIUM 500 MG DR TABLET PO SCH ×3 (09:06→17:35)
[2018-12-03 14:41] VITALS: BP 110/89
[2018-12-03 16:43] VITALS: BP 119/69
[2018-12-03] MEDS: HALOPERIDOL 10 MG TABLET PO SCH (21:05)
[2018-12-04 00:59] VITALS: BP 112/67
[2018-12-04 08:42] VITALS: BP 108/65
[2018-12-04] MEDS: DIVALPROEX SODIUM 500 MG DR TABLET PO SCH ×3 (08:54→16:40)
[2018-12-04] MEDS: TRIHEXYPHENIDYL HCL 2 MG TABLET PO SCH ×2 (08:54→16:40)
[2018-12-04] MEDS: LORazepam 2 MG TABLET PO PRN (09:17)
[2018-12-04] MEDS ORDERED: HALO10 PO (13:10)
[2018-12-04 16:21] VITALS: BP 121/82
== END 2018-12-04 17:50 | disposition home or self-care (01) | DRG 885 ==
LOC: B2S 11:54
PROVIDERS: ADMIT Psychiatry & Neurology Psychiatry; ATTEND Psychiatry & Neurology Psychiatry
DX: F20.0 Paranoid schizophrenia (principal); K21.9 Gastro-esophageal reflux disease without esophagitis; F14.90 Cocaine use, unspecified, uncomplicated
CPT/HCPCS: 83036; 84439; 84443

== ENCOUNTER → 2018-12-27 | Outpatient (CLI) | payer MEDICARE, OTHER ==
[~2018-12-27] MED LIST changes: +HALO10 PO; -HALO100V4 IM; -MULT-248 PO
== END | disposition home or self-care (01) ==
LOC: LABMN 11:45
PROVIDERS: ATTEND Psychiatry & Neurology Psychiatry
DX: F20.9 Schizophrenia, unspecified (principal)
CPT/HCPCS: 80173

== ENCOUNTER 2019-02-19 14:50 | Emergency (ER) | payer MEDICARE, OTHER ==
[~2019-02-19] VITALS: Ht 180.3 cm; Wt 67.7 kg
[2019-02-19] MEDS ORDERED: LORazepam 2 MG TABLET PO ONE (15:15)
[2019-02-19] MEDS ORDERED: HALOPERIDOL 5 MG TABLET PO ONE (15:15)
[2019-02-19 15:36] LABS: BASOPHILS % (AUTO) 0.6 % (0.0-2.0); EOSINOPHILS % (AUTO) 0.2 % (1.0-6.0); HEMATOCRIT 34.1 % (41-53); HEMOGLOBIN 11.4 g/dL (13.5-17.5); LYMPHOCYTES # (AUTO) 1.3 K/uL (1.0-4.8); LYMPHOCYTES % (AUTO) 24.5 % (22.0-44.0); MEAN CORPUSCULAR HEMOGLOBIN 32.3 pg (26.0-34.0); MEAN CORPUSCULAR HGB CONC 33.5 G/dL (31.0-37.0); MEAN CORPUSCULAR VOLUME 96 fL (80-100); MONOCYTES # (AUTO) 0.5 K/uL (0.1-1.0); NEUTROPHILS # (AUTO) 3.5 K/uL (1.8-7.7); NEUTROPHILS % (AUTO) 64.7 % (40.0-70.0); RED BLOOD CELL COUNT(AUTO) 3.54 MIL/uL (4.50-5.90); RED CELL DISTRIBUTION WIDTH 14.1 % (11.5-14.5)
[2019-02-19 15:42] LABS: ANION GAP 10 mmol/L (8-16); CALCIUM, TOTAL 9.1 mg/dL (8.8-10.5); CARBON DIOXIDE 27 mmol/L (22-29); CHLORIDE 99 mmol/L (98-107); GLOMERULAR FILTR. RATE CALC 36 mL/min (>60); GLUCOSE,RANDOM 64 mg/dL (70-110); POTASSIUM 3.8 mmol/L (3.5-5.1); SODIUM SERUM 136 mmol/L (136-145); UREA NITROGEN, BLOOD 25 mg/dL (7-18)
[2019-02-19 15:49] LABS: ALANINE AMINOTRANSFERASE 35 U/L (12-78); ALBUMIN 3.2 g/dL (3.4-5.0); ALKALINE PHOSPHATASE 34 U/L (46-116); ASPARTATE AMINOTRANSFERASE 54 U/L (15-37); BILIRUBIN,TOTAL 0.6 mg/dL (0.1-1.0); TOTAL PROTEIN, SERUM 7.7 g/dL (6.4-8.2)
[2019-02-19 16:02] LABS: PLATELET COUNT (AUTO) 81 K/uL (150-450); PLATELET MORPHOLOGY COMMENT GIANT PLTS PRESENT
[2019-02-19 17:41] VITALS: BP 110/84
== END 2019-02-19 17:43 | disposition home or self-care (01) ==
LOC: EMS 14:53
DX: F20.9 Schizophrenia, unspecified (principal); Z59.0 Homelessness; J44.9 Chronic obstructive pulmonary disease, unspecified; K21.9 Gastro-esophageal reflux disease without esophagitis; Z79.899 Other long term (current) drug therapy; Z88.8 Allergy status to other drugs, medicaments and biological substances; Z86.19 Personal history of other infectious and parasitic diseases
CPT/HCPCS: 36415; 80053; 85025; 99284; G0480

== ENCOUNTER 2019-02-21 10:23 | Inpatient (IN) | payer MEDICARE, MEDICAID ==
[~2019-02-21] VITALS: Ht 198.1 cm; Wt 67.4 kg
[2019-02-21 10:55] VITALS: BP 96/65
[2019-02-21] MEDS ORDERED: HALO50VI4 IM ×2 (11:22→11:40)
[2019-02-21 12:20] VITALS: BP 105/68
[2019-02-21] MEDS ORDERED: HALOPERIDOL 5 MG TABLET PO PRN (13:45)
[2019-02-21] MEDS ORDERED: ZOLPIDEM TARTRATE 10 MG TABLET PO PRN (13:45)
[2019-02-21] MEDS ORDERED: LORazepam 2 MG TABLET PO PRN (13:45)
[2019-02-21] MEDS ORDERED: PNEUMOCOCCAL VACCINE POLYVALENT 0.5 ML VIAL [PPSV23] IM ONE (14:15)
[2019-02-21] MEDS: DIVALPROEX SODIUM 500 MG ER TABLET PO SCH (16:34)
[2019-02-21] MEDS: TRIHEXYPHENIDYL HCL 2 MG TABLET PO SCH (16:34)
[2019-02-21 17:55] VITALS: BP 118/78
[2019-02-21] MEDS: HALOPERIDOL 10 MG TABLET PO SCH (20:37)
[2019-02-22 06:43] VITALS: BP 112/72
[2019-02-22] MEDS: DIVALPROEX SODIUM 500 MG ER TABLET PO SCH ×3 (08:28→16:41)
[2019-02-22] MEDS: TRIHEXYPHENIDYL HCL 2 MG TABLET PO SCH ×2 (08:28→16:41)
[2019-02-22 08:34] LABS: AMPHET/METH SCREEN,URINE NEGATIVE (NEGATIVE); BARBITURATE SCREEN, URINE NEGATIVE (NEGATIVE); BENZODIAZEPINES SCREEN,URINE NEGATIVE (NEGATIVE); CANNABINOID SCREEN,URINE NEGATIVE (NEGATIVE); COCAINE SCREEN,URINE NEGATIVE (NEGATIVE); METHADONE SCREEN, URINE NEGATIVE (NEGATIVE); OPIATE SCREEN,URINE NEGATIVE (NEGATIVE)
[2019-02-22 08:36] VITALS: BP 104/69
[2019-02-22 08:36] LABS: PHENCYCLIDINE SCREEN,URINE NEGATIVE (NEGATIVE)
[2019-02-22 08:49] LABS: APPEARANCE,URINE CLEAR (CLEAR); BILIRUBIN,URINE NEGATIVE (NEGATIVE); GLUCOSE, URINE (UA) NEGATIVE (NEGATIVE); KETONES,URINE NEGATIVE (NEGATIVE); LEUKOCYTE ESTERASE ,URINE NEGATIVE (NEGATIVE); NITRATE,URINE NEGATIVE (NEGATIVE); OCCULT BLOOD,URINE NEGATIVE (NEGATIVE); PROTEIN,URINE NEGATIVE (NEGATIVE)
[2019-02-22 16:15] VITALS: BP 106/66
[2019-02-22] MEDS: HALOPERIDOL 10 MG TABLET PO SCH (20:06)
[2019-02-23 06:45] VITALS: BP 110/68
[2019-02-23] MEDS: TRIHEXYPHENIDYL HCL 2 MG TABLET PO SCH ×2 (08:36→16:30)
[2019-02-23] MEDS: DIVALPROEX SODIUM 500 MG ER TABLET PO SCH ×3 (08:36→16:30)
[2019-02-23] MEDS: MULTIVITAMINS WITH IRON TABLET PO SCH (08:36)
[2019-02-23 08:51] VITALS: BP 100/64
[2019-02-23 16:18] VITALS: BP 104/63
[2019-02-23] MEDS: HALOPERIDOL 10 MG TABLET PO SCH (20:30)
[2019-02-24 06:27] VITALS: BP 110/68
[2019-02-24 08:15] VITALS: BP 110/67
[2019-02-24] MEDS: TRIHEXYPHENIDYL HCL 2 MG TABLET PO SCH ×2 (08:34→16:35)
[2019-02-24] MEDS: DIVALPROEX SODIUM 500 MG ER TABLET PO SCH ×3 (08:34→16:36)
[2019-02-24] MEDS: MULTIVITAMINS WITH IRON TABLET PO SCH (08:34)
[2019-02-24 16:19] VITALS: BP 114/68
[2019-02-24] MEDS ORDERED: MAG HYDROX/AL HYDROX/SIMETH 30 ML SUSP UDCUP PO PRN (17:00)
[2019-02-24] MEDS: HALOPERIDOL 10 MG TABLET PO SCH (20:31)
[2019-02-25 00:27] VITALS: BP 108/64
[2019-02-25 08:27] VITALS: BP 109/65
[2019-02-25] MEDS: TRIHEXYPHENIDYL HCL 2 MG TABLET PO SCH ×2 (08:49→16:31)
[2019-02-25] MEDS: MULTIVITAMINS WITH IRON TABLET PO SCH (08:49)
[2019-02-25] MEDS: DIVALPROEX SODIUM 500 MG ER TABLET PO SCH ×3 (08:49→16:31)
[2019-02-25] MEDS ORDERED: MAG HYDROX/AL HYDROX/SIMETH ES 30 ML SUSPENSION UDCUP PO PRN (16:15)
[2019-02-25] MEDS ORDERED: MAGNESIUM HYDROXIDE SUSPENSION 30 ML UDCUP PO PRN (16:15)
[2019-02-25] MEDS ORDERED: ACETAMINOPHEN 325 MG TABLET PO PRN (16:15)
[2019-02-25] MEDS ORDERED: TUBERCULIN, PURIFIED PROTEIN DERIVATIVE 5 TU/0.1 ML SYRINGE ID ONE (16:15)
[2019-02-25] MEDS ORDERED: HydrOXYzine PAMOATE 50 MG CAPSULE PO PRN (16:15)
[2019-02-25] MEDS ORDERED: PROMETHAZINE HCL 25 MG TABLET PO PRN (16:15)
[2019-02-25] MEDS ORDERED: LOPERAMIDE HCL 2 MG CAPSULE PO PRN (16:15)
[2019-02-25] MEDS ORDERED: GuaiFENesin/D-METHORPHAN [SUGAR-FREE] 200-20MG/10 ML SYRUP UDCUP PO PRN (16:15)
[2019-02-25 16:25] VITALS: BP 108/72
[2019-02-25] MEDS: THIAMINE HCL 100 MG TABLET PO SCH (16:31)
[2019-02-25] MEDS: HALOPERIDOL 10 MG TABLET PO SCH (20:32)
[2019-02-26 05:55] VITALS: BP 115/69
[2019-02-26 08:17] VITALS: BP 110/69
[2019-02-26] MEDS: FOLIC ACID 1 MG TABLET PO SCH (08:35)
[2019-02-26] MEDS: DIVALPROEX SODIUM 500 MG ER TABLET PO SCH ×3 (08:35→16:33)
[2019-02-26] MEDS: MULTIVITAMINS WITH MINERALS, THERAPEUTIC TABLET PO SCH (08:35)
[2019-02-26] MEDS: THIAMINE HCL 100 MG TABLET PO SCH ×2 (08:35→16:33)
[2019-02-26] MEDS: TRIHEXYPHENIDYL HCL 2 MG TABLET PO SCH ×2 (08:35→16:33)
[2019-02-26] MEDS: NALTREXONE HCL 50 MG TABLET PO SCH (08:35)
[2019-02-26 16:12] VITALS: BP 104/64
[2019-02-26] MEDS: HALOPERIDOL 10 MG TABLET PO SCH (20:39)
[2019-02-27 06:46] VITALS: BP 108/65
[2019-02-27] MEDS: TRIHEXYPHENIDYL HCL 2 MG TABLET PO SCH ×2 (08:14→16:37)
[2019-02-27] MEDS: FOLIC ACID 1 MG TABLET PO SCH (08:14)
[2019-02-27] MEDS: DIVALPROEX SODIUM 500 MG ER TABLET PO SCH ×3 (08:14→16:37)
[2019-02-27] MEDS: MULTIVITAMINS WITH MINERALS, THERAPEUTIC TABLET PO SCH (08:14)
[2019-02-27] MEDS: NALTREXONE HCL 50 MG TABLET PO SCH (08:14)
[2019-02-27] MEDS: THIAMINE HCL 100 MG TABLET PO SCH ×2 (08:14→16:37)
[2019-02-27 08:18] VITALS: BP 107/60
[2019-02-27 16:14] VITALS: BP 101/59
[2019-02-27] MEDS: HALOPERIDOL 10 MG TABLET PO SCH (20:34)
[2019-02-28 01:40] VITALS: BP 101/50
[2019-02-28 08:25] VITALS: BP 106/67
[2019-02-28] MEDS: MULTIVITAMINS WITH MINERALS, THERAPEUTIC TABLET PO SCH (08:32)
[2019-02-28] MEDS: DIVALPROEX SODIUM 500 MG ER TABLET PO SCH ×3 (08:32→16:33)
[2019-02-28] MEDS: THIAMINE HCL 100 MG TABLET PO SCH ×2 (08:33→16:33)
[2019-02-28] MEDS: NALTREXONE HCL 50 MG TABLET PO SCH (08:33)
[2019-02-28] MEDS: TRIHEXYPHENIDYL HCL 2 MG TABLET PO SCH ×2 (08:33→16:33)
[2019-02-28] MEDS: FOLIC ACID 1 MG TABLET PO SCH (08:33)
[2019-02-28] MEDS ORDERED: HALOPERIDOL DECANOATE 100 MG/ML VIAL IM ONE (15:15)
[2019-02-28 16:51] VITALS: BP 104/67
[2019-03-01 06:02] VITALS: BP 104/61
[2019-03-01] MEDS: TRIHEXYPHENIDYL HCL 2 MG TABLET PO SCH ×2 (08:07→16:36)
[2019-03-01] MEDS: MULTIVITAMINS WITH MINERALS, THERAPEUTIC TABLET PO SCH (08:07)
[2019-03-01] MEDS: DIVALPROEX SODIUM 500 MG ER TABLET PO SCH ×3 (08:07→16:36)
[2019-03-01] MEDS: THIAMINE HCL 100 MG TABLET PO SCH ×2 (08:07→16:36)
[2019-03-01] MEDS: FOLIC ACID 1 MG TABLET PO SCH (08:08)
[2019-03-01] MEDS: NALTREXONE HCL 50 MG TABLET PO SCH (08:08)
[2019-03-01 08:33] VITALS: BP 94/59
[2019-03-01 12:15] VITALS: BP 101/62
[2019-03-01 16:14] VITALS: BP 120/64
[2019-03-02 01:06] VITALS: BP 108/64
[2019-03-02] MEDS: TRIHEXYPHENIDYL HCL 2 MG TABLET PO SCH ×2 (08:05→16:25)
[2019-03-02] MEDS: MULTIVITAMINS WITH MINERALS, THERAPEUTIC TABLET PO SCH (08:05)
[2019-03-02] MEDS: FOLIC ACID 1 MG TABLET PO SCH (08:05)
[2019-03-02] MEDS: DIVALPROEX SODIUM 500 MG ER TABLET PO SCH ×3 (08:05→16:25)
[2019-03-02] MEDS: THIAMINE HCL 100 MG TABLET PO SCH ×2 (08:05→16:25)
[2019-03-02] MEDS: NALTREXONE HCL 50 MG TABLET PO SCH (08:05)
[2019-03-02 08:26] VITALS: BP 102/70
[2019-03-02 16:25] VITALS: BP 107/62
[2019-03-03 00:18] VITALS: BP 109/66
[2019-03-03 08:06] LABS: BASOPHILS % (AUTO) 0.4 % (0.0-2.0); EOSINOPHILS % (AUTO) 1.5 % (1.0-6.0); HEMATOCRIT 32.7 % (41-53); HEMOGLOBIN 11.1 g/dL (13.5-17.5); LYMPHOCYTES # (AUTO) 1.8 K/uL (1.0-4.8); LYMPHOCYTES % (AUTO) 41.5 % (22.0-44.0); MEAN CORPUSCULAR HEMOGLOBIN 32.7 pg (26.0-34.0); MEAN CORPUSCULAR HGB CONC 33.8 G/dL (31.0-37.0); MEAN CORPUSCULAR VOLUME 97 fL (80-100); MONOCYTES # (AUTO) 0.5 K/uL (0.1-1.0); MONOCYTES % (AUTO) 12.5 % (2.0-9.0); NEUTROPHILS # (AUTO) 1.9 K/uL (1.8-7.7); NEUTROPHILS % (AUTO) 44.1 % (40.0-70.0); PLATELET COUNT (AUTO) 72 K/uL (150-450); RED BLOOD CELL COUNT(AUTO) 3.38 MIL/uL (4.50-5.90)
[2019-03-03 08:13] VITALS: BP 109/68
[2019-03-03 08:23] LABS: HEMOGLOBIN A1C 5.1 % (4.5-6.2)
[2019-03-03 08:25] LABS: ALANINE AMINOTRANSFERASE 43 U/L (12-78); ALKALINE PHOSPHATASE 36 U/L (46-116); ANION GAP 5 mmol/L (8-16); ASPARTATE AMINOTRANSFERASE 44 U/L (15-37); BILIRUBIN,TOTAL 0.4 mg/dL (0.1-1.0); CALCIUM, TOTAL 9.2 mg/dL (8.8-10.5); CARBON DIOXIDE 30 mmol/L (22-29); CHLORIDE 107 mmol/L (98-107); CHOL/HDL RATIO 3.7 (4.2-7.3); CHOLESTEROL 106 mg/dL (131-200); CREATININE 1.17 mg/dL (0.60-1.30); FREE T4 (FREE THYROXINE) 1.15 ng/dL (0.76-1.46); GLOMERULAR FILTR. RATE CALC > 60 mL/min (>60); GLUCOSE,RANDOM 76 mg/dL (70-110); HDL CHOLESTEROL 29 mg/dL (40-60); LDL CHOL (CALC.) 71 mg/dL (0-130); POTASSIUM 4.4 mmol/L (3.5-5.1); SODIUM SERUM 142 mmol/L (136-145); THYROID STIMULATING HORMONE 1.71 uIU/mL (0.36-3.74); TOTAL PROTEIN, SERUM 7.1 g/dL (6.4-8.2); TRIGLYCERIDES 32 mg/dL (15-150); UREA NITROGEN, BLOOD 24 mg/dL (7-18)
[2019-03-03] MEDS: NALTREXONE HCL 50 MG TABLET PO SCH (08:35)
[2019-03-03] MEDS: FOLIC ACID 1 MG TABLET PO SCH (08:35)
[2019-03-03] MEDS: TRIHEXYPHENIDYL HCL 2 MG TABLET PO SCH ×2 (08:35→16:05)
[2019-03-03] MEDS: MULTIVITAMINS WITH MINERALS, THERAPEUTIC TABLET PO SCH (08:35)
[2019-03-03] MEDS: THIAMINE HCL 100 MG TABLET PO SCH ×2 (08:35→16:05)
[2019-03-03] MEDS: DIVALPROEX SODIUM 500 MG ER TABLET PO SCH ×3 (08:35→16:05)
[2019-03-03 16:15] VITALS: BP 104/69
[2019-03-04 04:09] VITALS: BP 111/66
[2019-03-04 08:18] VITALS: BP 132/73
[2019-03-04] MEDS: MULTIVITAMINS WITH MINERALS, THERAPEUTIC TABLET PO SCH (08:54)
[2019-03-04] MEDS: NALTREXONE HCL 50 MG TABLET PO SCH (08:54)
[2019-03-04] MEDS: FOLIC ACID 1 MG TABLET PO SCH (08:54)
[2019-03-04] MEDS: DIVALPROEX SODIUM 500 MG ER TABLET PO SCH ×3 (08:54→16:34)
[2019-03-04] MEDS: THIAMINE HCL 100 MG TABLET PO SCH ×2 (08:54→16:35)
[2019-03-04] MEDS: TRIHEXYPHENIDYL HCL 2 MG TABLET PO SCH ×2 (08:54→16:34)
[2019-03-04 16:27] VITALS: BP 115/69
[2019-03-04] MEDS ORDERED: TUBERCULIN, PURIFIED PROTEIN DERIVATIVE 5 TU/0.1 ML SYRINGE ID ONE (17:00)
[2019-03-05 03:22] VITALS: BP 113/71
[2019-03-05 08:21] VITALS: BP 109/68
[2019-03-05] MEDS: TRIHEXYPHENIDYL HCL 2 MG TABLET PO SCH ×2 (08:43→17:06)
[2019-03-05] MEDS: MULTIVITAMINS WITH MINERALS, THERAPEUTIC TABLET PO SCH (08:43)
[2019-03-05] MEDS: FOLIC ACID 1 MG TABLET PO SCH (08:43)
[2019-03-05] MEDS: DIVALPROEX SODIUM 500 MG ER TABLET PO SCH ×3 (08:43→17:06)
[2019-03-05] MEDS: THIAMINE HCL 100 MG TABLET PO SCH ×2 (08:43→17:06)
[2019-03-05] MEDS: NALTREXONE HCL 50 MG TABLET PO SCH (08:43)
[2019-03-05 17:04] VITALS: BP 107/67
[2019-03-06 02:51] VITALS: BP 104/62
[2019-03-06 08:13] VITALS: BP 107/68
[2019-03-06] MEDS: DIVALPROEX SODIUM 500 MG ER TABLET PO SCH ×3 (08:27→16:39)
[2019-03-06] MEDS: TRIHEXYPHENIDYL HCL 2 MG TABLET PO SCH ×2 (08:27→16:39)
[2019-03-06] MEDS: THIAMINE HCL 100 MG TABLET PO SCH ×2 (08:27→16:39)
[2019-03-06] MEDS: FOLIC ACID 1 MG TABLET PO SCH (08:27)
[2019-03-06] MEDS: NALTREXONE HCL 50 MG TABLET PO SCH (08:27)
[2019-03-06] MEDS: MULTIVITAMINS WITH MINERALS, THERAPEUTIC TABLET PO SCH (08:27)
[2019-03-06 18:34] VITALS: BP 108/60
[2019-03-07 00:23] VITALS: BP 112/64
[2019-03-07] MEDS: FOLIC ACID 1 MG TABLET PO SCH (08:03)
[2019-03-07] MEDS: MULTIVITAMINS WITH MINERALS, THERAPEUTIC TABLET PO SCH (08:03)
[2019-03-07] MEDS: TRIHEXYPHENIDYL HCL 2 MG TABLET PO SCH ×2 (08:03→16:36)
[2019-03-07] MEDS: DIVALPROEX SODIUM 500 MG ER TABLET PO SCH ×3 (08:03→16:36)
[2019-03-07] MEDS: NALTREXONE HCL 50 MG TABLET PO SCH (08:03)
[2019-03-07] MEDS: THIAMINE HCL 100 MG TABLET PO SCH (08:03)
[2019-03-07 08:53] VITALS: BP 107/68
[2019-03-07] MEDS ORDERED: DIVA500T52 PO (14:53)
[2019-03-07] MEDS ORDERED: HALO100V4 IM (14:53)
[2019-03-07] MEDS ORDERED: NALT50TA PO (14:53)
[2019-03-07] MEDS ORDERED: TRIH2TAB3 PO (14:53)
[2019-03-07 16:12] VITALS: BP 111/60
[2019-03-08 00:14] VITALS: BP 121/68
[2019-03-08] MEDS ORDERED: DIVA500T52 PO ×2 (07:47→07:49)
[2019-03-08] MEDS ORDERED: NALT50TA6 PO (07:47)
[2019-03-08] MEDS: DIVALPROEX SODIUM 500 MG ER TABLET PO SCH ×2 (08:16→12:02)
[2019-03-08] MEDS: MULTIVITAMINS WITH MINERALS, THERAPEUTIC TABLET PO SCH (08:17)
[2019-03-08] MEDS: TRIHEXYPHENIDYL HCL 2 MG TABLET PO SCH (08:17)
[2019-03-08] MEDS: NALTREXONE HCL 50 MG TABLET PO SCH (08:17)
[2019-03-08 08:20] VITALS: BP 107/68
[2019-03-14] MEDS ORDERED: HALOPERIDOL DECANOATE 100 MG/ML VIAL IM SCH (09:00)
== END 2019-03-08 13:30 | disposition home or self-care (01) | DRG 885 ==
LOC: B2S 11:00 → B2X 11:41
PROVIDERS: ADMIT Psychiatry & Neurology Psychiatry; ATTEND Psychiatry & Neurology Psychiatry
DX: F29 Unspecified psychosis not due to a substance or known physiological condition (principal); B18.2 Chronic viral hepatitis C; D64.9 Anemia, unspecified; K21.9 Gastro-esophageal reflux disease without esophagitis; Z91.19 Patient's noncompliance with other medical treatment and regimen; Z56.0 Unemployment, unspecified
CPT/HCPCS: 80173; 80307; 83036; 84439; 84443; J1631

== ENCOUNTER 2019-03-19 10:20 | Inpatient (IN) | payer MEDICARE, MEDICAID ==
[~2019-03-19] VITALS: Ht 198.1 cm; Wt 68.3 kg
[~2019-03-19 10:20] MED LIST changes: -DIVA-78 PO; +DIVA500T52 PO; -HALO10 PO; +HALO100V4 IM; +NALT50TA PO; +NALT50TA6 PO
[2019-03-19] MEDS ORDERED: ZOLPIDEM TARTRATE 10 MG TABLET PO PRN (11:00)
[2019-03-19] MEDS ORDERED: PROMETHAZINE HCL 25 MG TABLET PO PRN ×2 (11:00→12:30)
[2019-03-19] MEDS ORDERED: LOPERAMIDE HCL 2 MG CAPSULE PO PRN (11:00)
[2019-03-19] MEDS ORDERED: ACETAMINOPHEN 325 MG TABLET PO PRN (11:00)
[2019-03-19] MEDS ORDERED: MAGNESIUM HYDROXIDE SUSPENSION 30 ML UDCUP PO PRN (11:00)
[2019-03-19 11:03] VITALS: BP 102/68
[2019-03-19] MEDS ORDERED: HydrOXYzine PAMOATE 50 MG CAPSULE PO PRN (12:30)
[2019-03-19] MEDS ORDERED: GuaiFENesin/D-METHORPHAN [SUGAR-FREE] 200-20MG/10 ML SYRUP UDCUP PO PRN (12:30)
[2019-03-19] MEDS ORDERED: HALOPERIDOL DECANOATE 100 MG/ML VIAL IM ONE (12:30)
[2019-03-19 12:57] VITALS: BP 101/58
[2019-03-19 16:02] VITALS: BP 112/62
[2019-03-19] MEDS: TRIHEXYPHENIDYL HCL 2 MG TABLET PO SCH (16:30)
[2019-03-19] MEDS: THIAMINE HCL 100 MG TABLET PO SCH (16:31)
[2019-03-19] MEDS: DIVALPROEX SODIUM 500 MG ER TABLET PO SCH (16:31)
[2019-03-20 06:42] VITALS: BP 131/80
[2019-03-20] MEDS: TRIHEXYPHENIDYL HCL 2 MG TABLET PO SCH ×2 (08:12→16:32)
[2019-03-20] MEDS: FOLIC ACID 1 MG TABLET PO SCH (08:12)
[2019-03-20] MEDS: NALTREXONE HCL 50 MG TABLET PO SCH (08:12)
[2019-03-20] MEDS: THIAMINE HCL 100 MG TABLET PO SCH ×2 (08:12→16:32)
[2019-03-20] MEDS: DIVALPROEX SODIUM 500 MG ER TABLET PO SCH ×3 (08:12→16:32)
[2019-03-20 08:13] VITALS: BP 109/67
[2019-03-20 08:22] LABS: BASOPHILS % (AUTO) 0.6 % (0.0-2.0); EOSINOPHILS % (AUTO) 3.5 % (1.0-6.0); HEMATOCRIT 31.1 % (41-53); HEMOGLOBIN 10.5 g/dL (13.5-17.5); LYMPHOCYTES # (AUTO) 1.3 K/uL (1.0-4.8); LYMPHOCYTES % (AUTO) 42.9 % (22.0-44.0); MEAN CORPUSCULAR HEMOGLOBIN 33.1 pg (26.0-34.0); MEAN CORPUSCULAR HGB CONC 33.8 G/dL (31.0-37.0); MEAN CORPUSCULAR VOLUME 98 fL (80-100); MONOCYTES # (AUTO) 0.4 K/uL (0.1-1.0); MONOCYTES % (AUTO) 13.6 % (2.0-9.0); NEUTROPHILS # (AUTO) 1.2 K/uL (1.8-7.7); NEUTROPHILS % (AUTO) 39.4 % (40.0-70.0); PLATELET COUNT (AUTO) 69 K/uL (150-450); RED BLOOD CELL COUNT(AUTO) 3.18 MIL/uL (4.50-5.90); RED CELL DISTRIBUTION WIDTH 14.6 % (11.5-14.5)
[2019-03-20 08:48] LABS: APPEARANCE,URINE CLEAR (CLEAR); BILIRUBIN,URINE NEGATIVE (NEGATIVE); GLUCOSE, URINE (UA) NEGATIVE (NEGATIVE); KETONES,URINE NEGATIVE (NEGATIVE); LEUKOCYTE ESTERASE ,URINE NEGATIVE (NEGATIVE); NITRATE,URINE NEGATIVE (NEGATIVE); OCCULT BLOOD,URINE NEGATIVE (NEGATIVE); PROTEIN,URINE NEGATIVE (NEGATIVE)
[2019-03-20] MEDS ORDERED: MULTIVITAMINS WITH MINERALS, THERAPEUTIC TABLET PO SCH (09:00)
[2019-03-20 09:11] LABS: ALBUMIN 2.6 g/dL (3.4-5.0); BILIRUBIN,TOTAL 0.4 mg/dL (0.1-1.0); CALCIUM, TOTAL 8.6 mg/dL (8.8-10.5); CREATININE 1.35 mg/dL (0.60-1.30); FREE T4 (FREE THYROXINE) 1.15 ng/dL (0.76-1.46); THYROID STIMULATING HORMONE 1.18 uIU/mL (0.36-3.74); TOTAL PROTEIN, SERUM 6.3 g/dL (6.4-8.2)
[2019-03-20 16:04] VITALS: BP 120/72
[2019-03-21 00:57] VITALS: BP 112/69
[2019-03-21] MEDS: NALTREXONE HCL 50 MG TABLET PO SCH (08:09)
[2019-03-21] MEDS: DIVALPROEX SODIUM 500 MG ER TABLET PO SCH ×3 (08:09→16:27)
[2019-03-21] MEDS: THIAMINE HCL 100 MG TABLET PO SCH ×2 (08:10→16:27)
[2019-03-21] MEDS: MULTIVITAMINS WITH IRON TABLET PO SCH (08:10)
[2019-03-21] MEDS: TRIHEXYPHENIDYL HCL 2 MG TABLET PO SCH ×2 (08:10→16:27)
[2019-03-21] MEDS: FOLIC ACID 1 MG TABLET PO SCH (08:10)
[2019-03-21 08:18] VITALS: BP 115/71
[2019-03-21 09:14] LABS: CHOL/HDL RATIO 3.6 (4.2-7.3)
[2019-03-21] MEDS: MUPIROCIN CALCIUM 2% 22 GM OINTMENT NASAL SCH ×2 (12:12→17:23)
[2019-03-21 16:01] VITALS: BP 118/62
[2019-03-21] MEDS: MAG HYDROX/AL HYDROX/SIMETH ES 30 ML SUSPENSION UDCUP PO PRN (22:17)
[2019-03-22 00:04] VITALS: BP 108/76
[2019-03-22 08:04] VITALS: BP 115/69
[2019-03-22] MEDS: TRIHEXYPHENIDYL HCL 2 MG TABLET PO SCH ×2 (08:05→16:17)
[2019-03-22] MEDS: DIVALPROEX SODIUM 500 MG ER TABLET PO SCH ×3 (08:05→16:17)
[2019-03-22] MEDS: THIAMINE HCL 100 MG TABLET PO SCH ×2 (08:05→16:17)
[2019-03-22] MEDS: NALTREXONE HCL 50 MG TABLET PO SCH (08:05)
[2019-03-22] MEDS: FOLIC ACID 1 MG TABLET PO SCH (08:05)
[2019-03-22] MEDS: MULTIVITAMINS WITH IRON TABLET PO SCH (08:05)
[2019-03-22] MEDS: MUPIROCIN CALCIUM 2% 22 GM OINTMENT NASAL SCH ×2 (08:06→16:18)
[2019-03-22 16:04] VITALS: BP 115/71
[2019-03-23] VITALS (13 sets, daily range): BP systolic 100–137; BP diastolic 60–90
[2019-03-23] MEDS: FOLIC ACID 1 MG TABLET PO SCH (08:06)
[2019-03-23] MEDS: MULTIVITAMINS WITH IRON TABLET PO SCH (08:06)
[2019-03-23] MEDS: THIAMINE HCL 100 MG TABLET PO SCH ×2 (08:06→16:26)
[2019-03-23] MEDS: TRIHEXYPHENIDYL HCL 2 MG TABLET PO SCH ×2 (08:06→16:26)
[2019-03-23] MEDS: NALTREXONE HCL 50 MG TABLET PO SCH (08:06)
[2019-03-23] MEDS: DIVALPROEX SODIUM 500 MG ER TABLET PO SCH ×3 (08:06→16:26)
[2019-03-23] MEDS: MUPIROCIN CALCIUM 2% 22 GM OINTMENT NASAL SCH ×2 (08:08→16:27)
[2019-03-24 00:05] VITALS: BP 122/78
[2019-03-24 02:35] VITALS: BP 122/78
[2019-03-24 08:01] VITALS: BP 108/65
[2019-03-24] MEDS: FOLIC ACID 1 MG TABLET PO SCH (08:51)
[2019-03-24] MEDS: TRIHEXYPHENIDYL HCL 2 MG TABLET PO SCH ×2 (08:51→16:38)
[2019-03-24] MEDS: THIAMINE HCL 100 MG TABLET PO SCH ×2 (08:51→16:36)
[2019-03-24] MEDS: DIVALPROEX SODIUM 500 MG ER TABLET PO SCH ×3 (08:51→16:37)
[2019-03-24] MEDS: MULTIVITAMINS WITH IRON TABLET PO SCH (08:51)
[2019-03-24] MEDS: NALTREXONE HCL 50 MG TABLET PO SCH (08:52)
[2019-03-24] MEDS: MUPIROCIN CALCIUM 2% 22 GM OINTMENT NASAL SCH ×2 (08:52→16:36)
[2019-03-24 16:04] VITALS: BP 113/78
[2019-03-24 16:32] VITALS: BP 113/78
[2019-03-25] MEDS: HALOPERIDOL 5 MG TABLET PO PRN (00:26)
[2019-03-25 03:20] VITALS: BP 133/87
[2019-03-25 08:14] VITALS: BP 108/78
[2019-03-25] MEDS: MUPIROCIN CALCIUM 2% 22 GM OINTMENT NASAL SCH ×2 (08:21→16:30)
[2019-03-25] MEDS: THIAMINE HCL 100 MG TABLET PO SCH ×2 (08:21→16:31)
[2019-03-25] MEDS: TRIHEXYPHENIDYL HCL 2 MG TABLET PO SCH ×2 (08:21→16:31)
[2019-03-25] MEDS: FOLIC ACID 1 MG TABLET PO SCH (08:21)
[2019-03-25] MEDS: MULTIVITAMINS WITH IRON TABLET PO SCH (08:21)
[2019-03-25] MEDS: DIVALPROEX SODIUM 500 MG ER TABLET PO SCH ×3 (08:21→16:31)
[2019-03-25] MEDS: NALTREXONE HCL 50 MG TABLET PO SCH (08:21)
[2019-03-25 16:00] VITALS: BP 108/69
[2019-03-25] MEDS: MAG HYDROX/AL HYDROX/SIMETH ES 30 ML SUSPENSION UDCUP PO PRN (21:01)
[2019-03-26 02:06] VITALS: BP 110/68
[2019-03-26] MEDS: HALOPERIDOL 5 MG TABLET PO PRN (03:29)
[2019-03-26] MEDS: FOLIC ACID 1 MG TABLET PO SCH (08:03)
[2019-03-26] MEDS: DIVALPROEX SODIUM 500 MG ER TABLET PO SCH ×3 (08:03→16:30)
[2019-03-26] MEDS: TRIHEXYPHENIDYL HCL 2 MG TABLET PO SCH ×2 (08:03→16:30)
[2019-03-26] MEDS: NALTREXONE HCL 50 MG TABLET PO SCH (08:03)
[2019-03-26] MEDS: MULTIVITAMINS WITH IRON TABLET PO SCH (08:03)
[2019-03-26] MEDS: MUPIROCIN CALCIUM 2% 22 GM OINTMENT NASAL SCH (08:03)
[2019-03-26] MEDS: THIAMINE HCL 100 MG TABLET PO SCH ×2 (08:04→16:30)
[2019-03-26 08:12] VITALS: BP 108/65
[2019-03-26] MEDS ORDERED: HALOPERIDOL DECANOATE 100 MG/ML VIAL IM ONE (14:15)
[2019-03-26] MEDS ORDERED: TUBERCULIN, PURIFIED PROTEIN DERIVATIVE 5 TU/0.1 ML SYRINGE ID ONE (14:15)
[2019-03-26 16:00] VITALS: BP 106/66
[2019-03-27 01:46] VITALS: BP 107/63
[2019-03-27] MEDS: MAG HYDROX/AL HYDROX/SIMETH ES 30 ML SUSPENSION UDCUP PO PRN (01:52)
[2019-03-27 08:01] VITALS: BP 113/70
[2019-03-27] MEDS: MULTIVITAMINS WITH IRON TABLET PO SCH (08:03)
[2019-03-27] MEDS: FOLIC ACID 1 MG TABLET PO SCH (08:04)
[2019-03-27] MEDS: THIAMINE HCL 100 MG TABLET PO SCH ×2 (08:04→16:34)
[2019-03-27] MEDS: TRIHEXYPHENIDYL HCL 2 MG TABLET PO SCH ×2 (08:04→16:34)
[2019-03-27] MEDS: DIVALPROEX SODIUM 500 MG ER TABLET PO SCH ×3 (08:04→16:34)
[2019-03-27] MEDS: HALOPERIDOL 5 MG TABLET PO PRN (08:04)
[2019-03-27] MEDS: NALTREXONE HCL 50 MG TABLET PO SCH (08:04)
[2019-03-27 16:01] VITALS: BP 112/70
[2019-03-28 01:01] VITALS: BP 122/87
[2019-03-28 08:12] VITALS: BP 113/66
[2019-03-28] MEDS: DIVALPROEX SODIUM 500 MG ER TABLET PO SCH ×3 (08:22→16:31)
[2019-03-28] MEDS: TRIHEXYPHENIDYL HCL 2 MG TABLET PO SCH ×2 (08:25→16:31)
[2019-03-28] MEDS: NALTREXONE HCL 50 MG TABLET PO SCH (08:25)
[2019-03-28] MEDS: THIAMINE HCL 100 MG TABLET PO SCH ×2 (08:26→16:31)
[2019-03-28] MEDS: MULTIVITAMINS WITH IRON TABLET PO SCH (08:27)
[2019-03-28] MEDS: FOLIC ACID 1 MG TABLET PO SCH (08:27)
[2019-03-28 16:02] VITALS: BP 111/67
[2019-03-29 03:17] VITALS: BP 124/76
[2019-03-29] MEDS: LORazepam 2 MG TABLET PO PRN (03:20)
[2019-03-29] MEDS: HALOPERIDOL 5 MG TABLET PO PRN (03:20)
[2019-03-29] MEDS: FOLIC ACID 1 MG TABLET PO SCH (08:23)
[2019-03-29] MEDS: NALTREXONE HCL 50 MG TABLET PO SCH (08:23)
[2019-03-29] MEDS: THIAMINE HCL 100 MG TABLET PO SCH (08:24)
[2019-03-29] MEDS: DIVALPROEX SODIUM 500 MG ER TABLET PO SCH ×3 (08:24→16:52)
[2019-03-29] MEDS: TRIHEXYPHENIDYL HCL 2 MG TABLET PO SCH ×2 (08:24→16:52)
[2019-03-29] MEDS: MULTIVITAMINS WITH IRON TABLET PO SCH (08:24)
[2019-03-29 08:36] VITALS: BP 111/74
[2019-03-29 09:10] VITALS: BP 117/78
[2019-03-29 16:10] VITALS: BP 112/77
[2019-03-30 06:20] VITALS: BP 119/83
[2019-03-30 08:02] VITALS: BP 109/69
[2019-03-30] MEDS: TRIHEXYPHENIDYL HCL 2 MG TABLET PO SCH ×2 (08:14→16:18)
[2019-03-30] MEDS: NALTREXONE HCL 50 MG TABLET PO SCH (08:15)
[2019-03-30] MEDS: DIVALPROEX SODIUM 500 MG ER TABLET PO SCH ×3 (08:15→16:18)
[2019-03-30] MEDS: MULTIVITAMINS WITH IRON TABLET PO SCH (08:15)
[2019-03-30 16:04] VITALS: BP 110/62
[2019-03-31 02:53] VITALS: BP 103/68
[2019-03-31 08:36] VITALS: BP 119/62
[2019-03-31] MEDS: TRIHEXYPHENIDYL HCL 2 MG TABLET PO SCH ×2 (09:20→16:04)
[2019-03-31] MEDS: MULTIVITAMINS WITH IRON TABLET PO SCH (09:20)
[2019-03-31] MEDS: NALTREXONE HCL 50 MG TABLET PO SCH (09:20)
[2019-03-31] MEDS: DIVALPROEX SODIUM 500 MG ER TABLET PO SCH ×3 (09:20→16:04)
[2019-03-31 16:26] VITALS: BP 136/78
[2019-04-01 05:17] VITALS: BP 105/62
[2019-04-01 08:41] VITALS: BP 128/78
[2019-04-01] MEDS: MULTIVITAMINS WITH IRON TABLET PO SCH (08:47)
[2019-04-01] MEDS: NALTREXONE HCL 50 MG TABLET PO SCH (08:47)
[2019-04-01] MEDS: TRIHEXYPHENIDYL HCL 2 MG TABLET PO SCH ×2 (08:47→16:27)
[2019-04-01] MEDS: DIVALPROEX SODIUM 500 MG ER TABLET PO SCH ×3 (08:47→16:27)
[2019-04-01 16:08] VITALS: BP 110/67
[2019-04-02 00:36] VITALS: BP 102/64
[2019-04-02 08:02] VITALS: BP 126/75
[2019-04-02] MEDS: DIVALPROEX SODIUM 500 MG ER TABLET PO SCH ×3 (08:02→16:30)
[2019-04-02] MEDS: MULTIVITAMINS WITH IRON TABLET PO SCH (08:02)
[2019-04-02] MEDS: TRIHEXYPHENIDYL HCL 2 MG TABLET PO SCH ×2 (08:02→16:30)
[2019-04-02] MEDS: NALTREXONE HCL 50 MG TABLET PO SCH (08:02)
[2019-04-02] MEDS: HALOPERIDOL DECANOATE 100 MG/ML VIAL IM SCH (08:04)
[2019-04-02 17:05] VITALS: BP 107/65
[2019-04-02] MEDS: MAG HYDROX/AL HYDROX/SIMETH ES 30 ML SUSPENSION UDCUP PO PRN (20:04)
[2019-04-03] VITALS: BP 112/74
[2019-04-03] MEDS: LORazepam 2 MG TABLET PO PRN (00:03)
[2019-04-03] MEDS: ZOLPIDEM TARTRATE 5 MG TABLET PO PRN (00:03)
[2019-04-03] MEDS: DIVALPROEX SODIUM 500 MG ER TABLET PO SCH ×3 (08:15→16:31)
[2019-04-03] MEDS: MULTIVITAMINS WITH IRON TABLET PO SCH (08:15)
[2019-04-03] MEDS: TRIHEXYPHENIDYL HCL 2 MG TABLET PO SCH ×2 (08:15→16:31)
[2019-04-03] MEDS: NALTREXONE HCL 50 MG TABLET PO SCH (08:15)
[2019-04-03 08:18] VITALS: BP 109/66
[2019-04-03 16:07] VITALS: BP 104/69
[2019-04-03] MEDS: HALOPERIDOL 2 MG TABLET PO SCH (16:31)
[2019-04-04 00:11] VITALS: BP 101/67
[2019-04-04] MEDS: HALOPERIDOL 2 MG TABLET PO SCH ×3 (08:11→16:20)
[2019-04-04] MEDS: DIVALPROEX SODIUM 500 MG ER TABLET PO SCH ×3 (08:11→16:20)
[2019-04-04] MEDS: TRIHEXYPHENIDYL HCL 2 MG TABLET PO SCH ×2 (08:12→16:20)
[2019-04-04] MEDS: MULTIVITAMINS WITH IRON TABLET PO SCH (08:12)
[2019-04-04] MEDS: NALTREXONE HCL 50 MG TABLET PO SCH (08:12)
[2019-04-04 08:44] VITALS: BP 101/61
[2019-04-04 16:03] VITALS: BP 104/63
[2019-04-05 00:18] VITALS: BP 126/83
[2019-04-05 08:10] VITALS: BP 136/68
[2019-04-05] MEDS: TRIHEXYPHENIDYL HCL 2 MG TABLET PO SCH ×2 (08:18→16:19)
[2019-04-05] MEDS: NALTREXONE HCL 50 MG TABLET PO SCH (08:18)
[2019-04-05] MEDS: DIVALPROEX SODIUM 500 MG ER TABLET PO SCH ×3 (08:18→16:19)
[2019-04-05] MEDS: MULTIVITAMINS WITH IRON TABLET PO SCH (08:18)
[2019-04-05] MEDS: HALOPERIDOL 2 MG TABLET PO SCH ×3 (08:18→16:19)
[2019-04-05 16:00] VITALS: BP 104/68
[2019-04-06 06:17] VITALS: BP 105/84
[2019-04-06] MEDS: HALOPERIDOL 2 MG TABLET PO SCH ×3 (08:07→16:29)
[2019-04-06] MEDS: DIVALPROEX SODIUM 500 MG ER TABLET PO SCH ×3 (08:07→16:28)
[2019-04-06] MEDS: MULTIVITAMINS WITH IRON TABLET PO SCH (08:07)
[2019-04-06] MEDS: NALTREXONE HCL 50 MG TABLET PO SCH (08:07)
[2019-04-06] MEDS: TRIHEXYPHENIDYL HCL 2 MG TABLET PO SCH ×2 (08:07→16:28)
[2019-04-06 08:25] VITALS: BP 112/63
[2019-04-06 16:04] VITALS: BP 103/60
[2019-04-07 00:45] VITALS: BP 110/68
[2019-04-07 08:08] VITALS: BP 112/85
[2019-04-07] MEDS: TRIHEXYPHENIDYL HCL 2 MG TABLET PO SCH ×2 (08:19→17:33)
[2019-04-07] MEDS: HALOPERIDOL 2 MG TABLET PO SCH ×3 (08:19→17:33)
[2019-04-07] MEDS: DIVALPROEX SODIUM 500 MG ER TABLET PO SCH ×3 (08:19→17:34)
[2019-04-07] MEDS: MULTIVITAMINS WITH IRON TABLET PO SCH (08:19)
[2019-04-07] MEDS: NALTREXONE HCL 50 MG TABLET PO SCH (08:19)
[2019-04-08] VITALS: BP 90/62
[2019-04-08 08:19] VITALS: BP 109/69
[2019-04-08] MEDS: DIVALPROEX SODIUM 500 MG ER TABLET PO SCH ×3 (08:19→16:27)
[2019-04-08] MEDS: TRIHEXYPHENIDYL HCL 2 MG TABLET PO SCH ×2 (08:19→16:27)
[2019-04-08] MEDS: HALOPERIDOL 2 MG TABLET PO SCH ×3 (08:19→16:27)
[2019-04-08] MEDS: NALTREXONE HCL 50 MG TABLET PO SCH (08:19)
[2019-04-08] MEDS: MULTIVITAMINS WITH IRON TABLET PO SCH (08:19)
[2019-04-08 16:13] VITALS: BP 116/61
[2019-04-09 01:15] VITALS: BP_SYST 101; BP_SYST 91; BP_DIAS 64
[2019-04-09 08:10] VITALS: BP 110/60
[2019-04-09] MEDS: HALOPERIDOL 2 MG TABLET PO SCH ×3 (08:17→16:40)
[2019-04-09] MEDS: TRIHEXYPHENIDYL HCL 2 MG TABLET PO SCH ×2 (08:17→16:40)
[2019-04-09] MEDS: DIVALPROEX SODIUM 500 MG ER TABLET PO SCH ×3 (08:17→16:40)
[2019-04-09] MEDS: NALTREXONE HCL 50 MG TABLET PO SCH (08:17)
[2019-04-09] MEDS: MULTIVITAMINS WITH IRON TABLET PO SCH (08:17)
[2019-04-09] MEDS ORDERED: HALOPERIDOL DECANOATE 100 MG/ML VIAL IM SCH (09:00)
[2019-04-09] MEDS: LORazepam 2 MG TABLET PO PRN (12:42)
[2019-04-09 16:08] VITALS: BP 118/68
[2019-04-10 00:06] VITALS: BP 98/62
[2019-04-10] MEDS: DIVALPROEX SODIUM 500 MG ER TABLET PO SCH ×3 (08:16→16:20)
[2019-04-10] MEDS: MULTIVITAMINS WITH IRON TABLET PO SCH (08:16)
[2019-04-10] MEDS: HALOPERIDOL 2 MG TABLET PO SCH ×3 (08:16→16:20)
[2019-04-10] MEDS: TRIHEXYPHENIDYL HCL 2 MG TABLET PO SCH ×2 (08:16→16:20)
[2019-04-10] MEDS: NALTREXONE HCL 50 MG TABLET PO SCH (08:16)
[2019-04-10 11:54] VITALS: BP 100/65
[2019-04-10 16:06] VITALS: BP 109/72
[2019-04-11 00:25] VITALS: BP 114/74
[2019-04-11] MEDS: HALOPERIDOL 2 MG TABLET PO SCH ×3 (08:05→16:14)
[2019-04-11] MEDS: DIVALPROEX SODIUM 500 MG ER TABLET PO SCH ×3 (08:05→16:14)
[2019-04-11] MEDS: NALTREXONE HCL 50 MG TABLET PO SCH (08:05)
[2019-04-11] MEDS: MULTIVITAMINS WITH IRON TABLET PO SCH (08:05)
[2019-04-11] MEDS: TRIHEXYPHENIDYL HCL 2 MG TABLET PO SCH ×2 (08:05→16:14)
[2019-04-11 08:10] VITALS: BP 106/66
[2019-04-11 16:34] VITALS: BP 114/69
[2019-04-11] MEDS: MAG HYDROX/AL HYDROX/SIMETH ES 30 ML SUSPENSION UDCUP PO PRN (20:56)
[2019-04-11] MEDS: ZOLPIDEM TARTRATE 5 MG TABLET PO PRN (23:06)
[2019-04-12 00:44] VITALS: BP 114/69
[2019-04-12 08:01] VITALS: BP 102/60
[2019-04-12] MEDS: HALOPERIDOL 2 MG TABLET PO SCH ×3 (08:18→16:28)
[2019-04-12] MEDS: TRIHEXYPHENIDYL HCL 2 MG TABLET PO SCH ×2 (08:18→16:28)
[2019-04-12] MEDS: MULTIVITAMINS WITH IRON TABLET PO SCH (08:18)
[2019-04-12] MEDS: DIVALPROEX SODIUM 500 MG ER TABLET PO SCH ×3 (08:18→16:28)
[2019-04-12] MEDS: NALTREXONE HCL 50 MG TABLET PO SCH (08:18)
[2019-04-12 16:04] VITALS: BP 107/62
[2019-04-13] VITALS: BP 122/82
[2019-04-13 08:07] VITALS: BP 108/73
[2019-04-13] MEDS: MULTIVITAMINS WITH IRON TABLET PO SCH (08:09)
[2019-04-13] MEDS: NALTREXONE HCL 50 MG TABLET PO SCH (08:09)
[2019-04-13] MEDS: DIVALPROEX SODIUM 500 MG ER TABLET PO SCH ×3 (08:09→16:32)
[2019-04-13] MEDS: TRIHEXYPHENIDYL HCL 2 MG TABLET PO SCH ×2 (08:09→16:32)
[2019-04-13] MEDS: HALOPERIDOL 2 MG TABLET PO SCH ×3 (08:09→16:32)
[2019-04-13 16:44] VITALS: BP 109/64
[2019-04-14 08:09] VITALS: BP 109/64
[2019-04-14] MEDS: MULTIVITAMINS WITH IRON TABLET PO SCH (08:28)
[2019-04-14] MEDS: TRIHEXYPHENIDYL HCL 2 MG TABLET PO SCH ×2 (08:28→16:06)
[2019-04-14] MEDS: NALTREXONE HCL 50 MG TABLET PO SCH (08:28)
[2019-04-14] MEDS: HALOPERIDOL 2 MG TABLET PO SCH ×3 (08:28→16:06)
[2019-04-14] MEDS: DIVALPROEX SODIUM 500 MG ER TABLET PO SCH ×3 (08:28→16:06)
[2019-04-14 16:12] VITALS: BP 103/64
[2019-04-15 00:42] VITALS: BP 111/70
[2019-04-15 08:09] VITALS: BP 107/62
[2019-04-15] MEDS: TRIHEXYPHENIDYL HCL 2 MG TABLET PO SCH ×2 (08:16→16:37)
[2019-04-15] MEDS: NALTREXONE HCL 50 MG TABLET PO SCH (08:16)
[2019-04-15] MEDS: HALOPERIDOL 2 MG TABLET PO SCH ×3 (08:17→16:37)
[2019-04-15] MEDS: DIVALPROEX SODIUM 500 MG ER TABLET PO SCH ×3 (08:17→16:37)
[2019-04-15] MEDS: MULTIVITAMINS WITH IRON TABLET PO SCH (08:17)
[2019-04-15 16:05] VITALS: BP 109/64
[2019-04-15] MEDS: ZOLPIDEM TARTRATE 5 MG TABLET PO PRN (21:21)
[2019-04-16 00:25] VITALS: BP 104/65
[2019-04-16 01:33] VITALS: BP 130/86
[2019-04-16] MEDS: LORazepam 2 MG TABLET PO PRN (01:35)
[2019-04-16 08:23] VITALS: BP 118/67
[2019-04-16] MEDS: NALTREXONE HCL 50 MG TABLET PO SCH (08:24)
[2019-04-16] MEDS: MULTIVITAMINS WITH IRON TABLET PO SCH (08:24)
[2019-04-16] MEDS: DIVALPROEX SODIUM 500 MG ER TABLET PO SCH ×3 (08:24→16:32)
[2019-04-16] MEDS: HALOPERIDOL 2 MG TABLET PO SCH ×3 (08:24→16:31)
[2019-04-16] MEDS: TRIHEXYPHENIDYL HCL 2 MG TABLET PO SCH ×2 (08:25→16:32)
[2019-04-16] MEDS: HALOPERIDOL DECANOATE 100 MG/ML VIAL IM SCH (08:28)
[2019-04-17 00:07] VITALS: BP 110/60
[2019-04-17] MEDS: DIVALPROEX SODIUM 500 MG ER TABLET PO SCH ×3 (08:19→17:05)
[2019-04-17] MEDS: HALOPERIDOL 2 MG TABLET PO SCH ×3 (08:20→17:05)
[2019-04-17] MEDS: TRIHEXYPHENIDYL HCL 2 MG TABLET PO SCH ×2 (08:20→17:05)
[2019-04-17] MEDS: MULTIVITAMINS WITH IRON TABLET PO SCH (08:20)
[2019-04-17] MEDS: NALTREXONE HCL 50 MG TABLET PO SCH (08:20)
[2019-04-17 08:34] VITALS: BP 106/69
[2019-04-17 17:58] VITALS: BP 113/61
[2019-04-18 02:18] VITALS: BP 100/60
[2019-04-18] MEDS: TRIHEXYPHENIDYL HCL 2 MG TABLET PO SCH ×2 (09:34→16:39)
[2019-04-18] MEDS: MULTIVITAMINS WITH IRON TABLET PO SCH (09:34)
[2019-04-18] MEDS: NALTREXONE HCL 50 MG TABLET PO SCH (09:35)
[2019-04-18] MEDS: DIVALPROEX SODIUM 500 MG ER TABLET PO SCH ×3 (09:35→16:39)
[2019-04-18] MEDS: HALOPERIDOL 2 MG TABLET PO SCH ×3 (09:35→16:39)
[2019-04-18 09:40] VITALS: BP 109/71
[2019-04-18 16:07] VITALS: BP 118/87
[2019-04-19 00:26] VITALS: BP 122/85
[2019-04-19 08:11] VITALS: BP 109/69
[2019-04-19] MEDS: HALOPERIDOL 2 MG TABLET PO SCH ×3 (08:45→16:42)
[2019-04-19] MEDS: MULTIVITAMINS WITH IRON TABLET PO SCH (08:45)
[2019-04-19] MEDS: TRIHEXYPHENIDYL HCL 2 MG TABLET PO SCH ×2 (08:45→16:42)
[2019-04-19] MEDS: DIVALPROEX SODIUM 500 MG ER TABLET PO SCH ×3 (08:45→16:42)
[2019-04-19] MEDS: NALTREXONE HCL 50 MG TABLET PO SCH (08:46)
[2019-04-19 16:25] VITALS: BP 108/60
[2019-04-20 00:41] VITALS: BP 101/68
[2019-04-20 08:38] VITALS: BP 102/59
[2019-04-20] MEDS: DIVALPROEX SODIUM 500 MG ER TABLET PO SCH ×3 (08:40→16:30)
[2019-04-20] MEDS: HALOPERIDOL 2 MG TABLET PO SCH ×3 (08:41→16:30)
[2019-04-20] MEDS: TRIHEXYPHENIDYL HCL 2 MG TABLET PO SCH ×2 (08:41→16:30)
[2019-04-20] MEDS: MULTIVITAMINS WITH IRON TABLET PO SCH (08:41)
[2019-04-20] MEDS: NALTREXONE HCL 50 MG TABLET PO SCH (08:58)
[2019-04-20 16:24] VITALS: BP 103/55
[2019-04-21 04:51] VITALS: BP 110/69
[2019-04-21 08:42] VITALS: BP 110/66
[2019-04-21] MEDS: NALTREXONE HCL 50 MG TABLET PO SCH (08:56)
[2019-04-21] MEDS: TRIHEXYPHENIDYL HCL 2 MG TABLET PO SCH ×2 (08:56→16:38)
[2019-04-21] MEDS: HALOPERIDOL 2 MG TABLET PO SCH ×3 (08:56→16:38)
[2019-04-21] MEDS: MULTIVITAMINS WITH IRON TABLET PO SCH (08:56)
[2019-04-21] MEDS: DIVALPROEX SODIUM 500 MG ER TABLET PO SCH ×3 (08:56→16:38)
[2019-04-22 00:33] VITALS: BP 100/63
[2019-04-22] MEDS: MULTIVITAMINS WITH IRON TABLET PO SCH (08:41)
[2019-04-22] MEDS: NALTREXONE HCL 50 MG TABLET PO SCH (08:41)
[2019-04-22] MEDS: DIVALPROEX SODIUM 500 MG ER TABLET PO SCH ×3 (08:41→16:36)
[2019-04-22] MEDS: HALOPERIDOL 2 MG TABLET PO SCH ×3 (08:42→16:36)
[2019-04-22] MEDS: TRIHEXYPHENIDYL HCL 2 MG TABLET PO SCH ×2 (08:43→16:36)
[2019-04-22 16:09] VITALS: BP 116/66
[2019-04-23 00:32] VITALS: BP 117/66
[2019-04-23] MEDS: TRIHEXYPHENIDYL HCL 2 MG TABLET PO SCH ×2 (08:31→16:59)
[2019-04-23] MEDS: DIVALPROEX SODIUM 500 MG ER TABLET PO SCH ×3 (08:31→16:59)
[2019-04-23] MEDS: HALOPERIDOL 2 MG TABLET PO SCH ×3 (08:31→16:59)
[2019-04-23 08:38] VITALS: BP 121/66
[2019-04-23] MEDS: MULTIVITAMINS WITH IRON TABLET PO SCH (08:55)
[2019-04-23] MEDS: NALTREXONE HCL 50 MG TABLET PO SCH (08:55)
[2019-04-23 16:05] VITALS: BP 108/68
[2019-04-24 00:14] VITALS: BP 109/75
[2019-04-24 08:22] VITALS: BP 110/69
[2019-04-24] MEDS: DIVALPROEX SODIUM 500 MG ER TABLET PO SCH ×3 (09:11→16:07)
[2019-04-24] MEDS: NALTREXONE HCL 50 MG TABLET PO SCH (09:11)
[2019-04-24] MEDS: HALOPERIDOL 2 MG TABLET PO SCH ×3 (09:11→16:07)
[2019-04-24] MEDS: MULTIVITAMINS WITH IRON TABLET PO SCH (09:11)
[2019-04-24] MEDS: TRIHEXYPHENIDYL HCL 2 MG TABLET PO SCH ×2 (09:11→16:07)
[2019-04-24] MEDS: MAG HYDROX/AL HYDROX/SIMETH ES 30 ML SUSPENSION UDCUP PO PRN (09:11)
[2019-04-24 16:05] VITALS: BP 111/69
[2019-04-25 00:45] VITALS: BP 100/69
[2019-04-25 08:27] VITALS: BP 106/62
[2019-04-25] MEDS: MULTIVITAMINS WITH IRON TABLET PO SCH (08:47)
[2019-04-25] MEDS: NALTREXONE HCL 50 MG TABLET PO SCH (08:47)
[2019-04-25] MEDS: HALOPERIDOL 2 MG TABLET PO SCH ×3 (08:47→16:32)
[2019-04-25] MEDS: TRIHEXYPHENIDYL HCL 2 MG TABLET PO SCH ×2 (08:47→16:32)
[2019-04-25] MEDS: DIVALPROEX SODIUM 500 MG ER TABLET PO SCH ×3 (08:47→16:32)
[2019-04-25 16:06] VITALS: BP 109/66
[2019-04-26] VITALS: BP 118/74
[2019-04-26] MEDS: TRIHEXYPHENIDYL HCL 2 MG TABLET PO SCH ×2 (08:35→16:17)
[2019-04-26] MEDS: MULTIVITAMINS WITH IRON TABLET PO SCH (08:35)
[2019-04-26] MEDS: DIVALPROEX SODIUM 500 MG ER TABLET PO SCH ×3 (08:35→16:17)
[2019-04-26] MEDS: HALOPERIDOL 2 MG TABLET PO SCH ×3 (08:35→16:17)
[2019-04-26] MEDS: NALTREXONE HCL 50 MG TABLET PO SCH (08:35)
[2019-04-26 16:05] VITALS: BP 109/68
[2019-04-26] MEDS ORDERED: INFLUENZA VIRUS VACCINE QVS 2019-20 (3YR+)/PF 60 MCG/0.5 ML SYRINGE IM ONE (20:00)
[2019-04-27 06:39] VITALS: BP 116/64
[2019-04-27 08:07] VITALS: BP 106/69
[2019-04-27] MEDS: HALOPERIDOL 2 MG TABLET PO SCH ×3 (08:28→16:09)
[2019-04-27] MEDS: MULTIVITAMINS WITH IRON TABLET PO SCH (08:28)
[2019-04-27] MEDS: TRIHEXYPHENIDYL HCL 2 MG TABLET PO SCH ×2 (08:28→16:09)
[2019-04-27] MEDS: DIVALPROEX SODIUM 500 MG ER TABLET PO SCH ×3 (08:28→16:09)
[2019-04-27] MEDS: NALTREXONE HCL 50 MG TABLET PO SCH (08:28)
[2019-04-28 00:15] VITALS: BP 127/83
[2019-04-28] MEDS ORDERED: PNEUMOCOCCAL VACCINE POLYVALENT 0.5 ML VIAL [PPSV23] IM ONE (06:15)
[2019-04-28 08:06] VITALS: BP 112/64
[2019-04-28] MEDS: MULTIVITAMINS WITH IRON TABLET PO SCH (08:22)
[2019-04-28] MEDS: HALOPERIDOL 2 MG TABLET PO SCH ×3 (08:22→17:11)
[2019-04-28] MEDS: NALTREXONE HCL 50 MG TABLET PO SCH (08:22)
[2019-04-28] MEDS: TRIHEXYPHENIDYL HCL 2 MG TABLET PO SCH ×2 (08:22→17:12)
[2019-04-28] MEDS: DIVALPROEX SODIUM 500 MG ER TABLET PO SCH ×3 (08:22→17:11)
[2019-04-28 16:05] VITALS: BP 116/76
[2019-04-29 01:01] VITALS: BP 109/63
[2019-04-29 08:16] VITALS: BP 119/70
[2019-04-29] MEDS: HALOPERIDOL 2 MG TABLET PO SCH ×3 (09:06→16:25)
[2019-04-29] MEDS: MULTIVITAMINS WITH IRON TABLET PO SCH (09:06)
[2019-04-29] MEDS: NALTREXONE HCL 50 MG TABLET PO SCH (09:06)
[2019-04-29] MEDS: TRIHEXYPHENIDYL HCL 2 MG TABLET PO SCH ×2 (09:06→16:25)
[2019-04-29] MEDS: DIVALPROEX SODIUM 500 MG ER TABLET PO SCH ×3 (09:06→16:25)
[2019-04-29] MEDS: HALOPERIDOL 5 MG TABLET PO PRN (14:52)
[2019-04-29 16:09] VITALS: BP 120/68
[2019-04-30 00:30] VITALS: BP 116/72
[2019-04-30] MEDS: TRIHEXYPHENIDYL HCL 2 MG TABLET PO SCH ×2 (08:22→16:04)
[2019-04-30] MEDS: MULTIVITAMINS WITH IRON TABLET PO SCH (08:22)
[2019-04-30] MEDS: DIVALPROEX SODIUM 500 MG ER TABLET PO SCH ×3 (08:22→16:04)
[2019-04-30] MEDS: HALOPERIDOL 2 MG TABLET PO SCH ×3 (08:22→16:04)
[2019-04-30] MEDS: NALTREXONE HCL 50 MG TABLET PO SCH (08:22)
[2019-04-30 08:29] VITALS: BP 114/75
[2019-04-30] MEDS: HALOPERIDOL DECANOATE 100 MG/ML VIAL IM SCH (09:14)
[2019-04-30 16:07] VITALS: BP 104/60
[2019-05-01 00:10] VITALS: BP 102/69
[2019-05-01 08:19] VITALS: BP 114/68
[2019-05-01] MEDS: NALTREXONE HCL 50 MG TABLET PO SCH (08:23)
[2019-05-01] MEDS: HALOPERIDOL 2 MG TABLET PO SCH (08:23)
[2019-05-01] MEDS: TRIHEXYPHENIDYL HCL 2 MG TABLET PO SCH (08:23)
[2019-05-01] MEDS: DIVALPROEX SODIUM 500 MG ER TABLET PO SCH (08:23)
[2019-05-01] MEDS: MULTIVITAMINS WITH IRON TABLET PO SCH (08:23)
[2019-05-01] MEDS ORDERED: HALOPERIDOL LACTATE 5 MG/ML VIAL ONE (11:48)
[2019-05-01] MEDS ORDERED: LORazepam 2 MG/ML VIAL ONE (11:48)
[2019-05-01] MEDS ORDERED: DiphenhydrAMINE HCL 50 MG/ML VIAL IM ONE (12:00)
[2019-05-01] MEDS ORDERED: HALOPERIDOL LACTATE 5 MG/ML VIAL IM ONE (12:00)
[2019-05-01] MEDS ORDERED: LORazepam 2 MG/ML VIAL IM ONE (12:00)
[2019-05-01] MEDS ORDERED: MVITFE PO (12:18)
[2019-05-01] MEDS ORDERED: HALO2 PO (12:18)
[2019-05-01] MEDS ORDERED: DIVA500T52 PO (14:03)
[2019-05-01] MEDS ORDERED: TRIH2TAB3 PO (14:03)
[2019-05-01] MEDS ORDERED: HALO50VI4 IM (14:03)
== END 2019-05-01 13:19 | disposition short-term general hospital (02) | DRG 885 ==
LOC: UNDOADMIN 10:20 → B2X 10:20
PROVIDERS: ADMIT Psychiatry & Neurology Psychiatry; ATTEND Psychiatry & Neurology Psychiatry
DX: F20.0 Paranoid schizophrenia (principal); B19.20 Unspecified viral hepatitis C without hepatic coma; F17.210 Nicotine dependence, cigarettes, uncomplicated; J44.9 Chronic obstructive pulmonary disease, unspecified; Z60.9 Problem related to social environment, unspecified; Z63.9 Problem related to primary support group, unspecified; Z59.9 Problem related to housing and economic circumstances, unspecified; Z88.8 Allergy status to other drugs, medicaments and biological substances; Z79.899 Other long term (current) drug therapy
CPT/HCPCS: 80173; 83036; 84439; 84443; 87081; 90632; 90686; 90732; J1630; J1631; J2060

== ENCOUNTER 2019-05-01 13:12 | Inpatient (IN) | payer MEDICARE, MEDICAID ==
[~2019-05-01 13:12] MED LIST changes: +HALO2 PO; +MVITFE PO
[2019-05-01 13:30] VITALS: BP 104/61
[2019-05-01] MEDS ORDERED: HALOPERIDOL 5 MG TABLET PO PRN (14:00)
[2019-05-01] MEDS ORDERED: TRIH2TAB3 PO (14:03)
[2019-05-01] MEDS ORDERED: DIVA500T52 PO (14:03)
[2019-05-01] MEDS ORDERED: HALO50VI4 IM (14:03)
[2019-05-01 15:00] VITALS: BP 104/61
[2019-05-01 16:00] VITALS: BP 108/68
[2019-05-01] MEDS: TRIHEXYPHENIDYL HCL 2 MG TABLET PO SCH (16:17)
[2019-05-01] MEDS: DIVALPROEX SODIUM 500 MG ER TABLET PO SCH (16:17)
[2019-05-01] MEDS: HALOPERIDOL 2 MG TABLET PO SCH (16:17)
[2019-05-01 16:46] VITALS: BP 108/68
[2019-05-01] MEDS ORDERED: TRIHEXYPHENIDYL HCL 2 MG TABLET PO SCH (21:00)
[2019-05-02 06:56] VITALS: BP 110/70
[2019-05-02 08:15] LABS: BASOPHILS % (AUTO) 0.3 % (0.0-2.0); EOSINOPHILS % (AUTO) 1.4 % (1.0-6.0); HEMATOCRIT 33.8 % (41-53); HEMOGLOBIN 11.5 g/dL (13.5-17.5); LYMPHOCYTES % (AUTO) 19.8 % (22.0-44.0); MEAN CORPUSCULAR HEMOGLOBIN 33.4 pg (26.0-34.0); MEAN CORPUSCULAR VOLUME 98 fL (80-100); MONOCYTES # (AUTO) 0.6 K/uL (0.1-1.0); MONOCYTES % (AUTO) 11.4 % (2.0-9.0); NEUTROPHILS # (AUTO) 3.4 K/uL (1.8-7.7); NEUTROPHILS % (AUTO) 67.1 % (40.0-70.0); PLATELET COUNT (AUTO) 115 K/uL (150-450); RED BLOOD CELL COUNT(AUTO) 3.45 MIL/uL (4.50-5.90); RED CELL DISTRIBUTION WIDTH 14.4 % (11.5-14.5)
[2019-05-02 08:22] VITALS: BP 110/65
[2019-05-02] MEDS: TRIHEXYPHENIDYL HCL 2 MG TABLET PO SCH (08:41)
[2019-05-02] MEDS: HALOPERIDOL 2 MG TABLET PO SCH ×2 (08:42→12:08)
[2019-05-02] MEDS: DIVALPROEX SODIUM 500 MG ER TABLET PO SCH ×2 (08:42→12:08)
[2019-05-02] MEDS ORDERED: NALTREXONE HCL 50 MG TABLET PO SCH (09:00)
[2019-05-02 09:04] LABS: HEMOGLOBIN A1C 5.7 % (4.5-6.2)
[2019-05-02 09:05] LABS: ALBUMIN 3.1 g/dL (3.4-5.0); BILIRUBIN,TOTAL 0.4 mg/dL (0.1-1.0); CALCIUM, TOTAL 9.2 mg/dL (8.8-10.5); CHOL/HDL RATIO 3.4 (4.2-7.3); CREATININE 1.34 mg/dL (0.60-1.30); POTASSIUM 4.2 mmol/L (3.5-5.1); THYROID STIMULATING HORMONE 2.61 uIU/mL (0.36-3.74); TOTAL PROTEIN, SERUM 7.8 g/dL (6.4-8.2)
[2019-05-14] MEDS ORDERED: HALOPERIDOL DECANOATE 100 MG/ML VIAL IM SCH (09:00)
== END 2019-05-02 13:30 | disposition short-term general hospital (02) | DRG 885 ==
LOC: B3A 14:00
PROVIDERS: ADMIT Psychiatry & Neurology Psychiatry; ATTEND Psychiatry & Neurology Psychiatry
DX: F20.0 Paranoid schizophrenia (principal); Z79.899 Other long term (current) drug therapy; Z88.8 Allergy status to other drugs, medicaments and biological substances
CPT/HCPCS: 83036; 84443

== ENCOUNTER 2019-05-02 13:52 | Inpatient (IN) | payer MEDICARE, MEDICAID ==
[~2019-05-02] VITALS: Ht 198.1 cm; Wt 71.2 kg
[~2019-05-02 13:52] MED LIST changes: -HALO100V4 IM; +HALO50VI4 IM; -NALT50TA PO
[2019-05-02 14:53] VITALS: BP 118/64
[2019-05-02 16:11] VITALS: BP 114/65
[2019-05-02] MEDS: DIVALPROEX SODIUM 500 MG ER TABLET PO SCH ×2 (16:51→17:28)
[2019-05-02] MEDS: HALOPERIDOL 2 MG TABLET PO SCH ×2 (16:51→17:28)
[2019-05-02] MEDS: TRIHEXYPHENIDYL HCL 2 MG TABLET PO SCH (17:28)
[2019-05-03 04:42] VITALS: BP 103/69
[2019-05-03 08:14] VITALS: BP 107/63
[2019-05-03] MEDS: DIVALPROEX SODIUM 500 MG ER TABLET PO SCH ×3 (08:31→16:20)
[2019-05-03] MEDS: TRIHEXYPHENIDYL HCL 2 MG TABLET PO SCH ×2 (08:31→16:20)
[2019-05-03] MEDS: HALOPERIDOL 2 MG TABLET PO SCH ×3 (08:32→16:20)
[2019-05-03] MEDS: NALTREXONE HCL 50 MG TABLET PO SCH (08:33)
[2019-05-03 16:03] VITALS: BP 106/70
[2019-05-04 08:00] VITALS: BP 113/15
[2019-05-04] MEDS: NALTREXONE HCL 50 MG TABLET PO SCH (08:18)
[2019-05-04] MEDS: HALOPERIDOL 2 MG TABLET PO SCH ×3 (08:18→16:29)
[2019-05-04] MEDS: TRIHEXYPHENIDYL HCL 2 MG TABLET PO SCH ×2 (08:18→16:29)
[2019-05-04] MEDS: DIVALPROEX SODIUM 500 MG ER TABLET PO SCH ×3 (08:18→16:29)
[2019-05-04] MEDS: MULTIVITAMINS WITH MINERALS, THERAPEUTIC TABLET PO SCH (08:18)
[2019-05-04 11:40] VITALS: BP 113/75
[2019-05-04 16:10] VITALS: BP 105/74
[2019-05-05 00:01] VITALS: BP 114/70
[2019-05-05] MEDS: HALOPERIDOL 2 MG TABLET PO SCH ×3 (08:33→16:35)
[2019-05-05] MEDS: TRIHEXYPHENIDYL HCL 2 MG TABLET PO SCH ×2 (08:34→16:35)
[2019-05-05] MEDS: NALTREXONE HCL 50 MG TABLET PO SCH (08:34)
[2019-05-05] MEDS: DIVALPROEX SODIUM 500 MG ER TABLET PO SCH ×3 (08:34→16:35)
[2019-05-05] MEDS: MULTIVITAMINS WITH MINERALS, THERAPEUTIC TABLET PO SCH (08:34)
[2019-05-05 08:58] VITALS: BP 116/72
[2019-05-05 16:09] VITALS: BP 101/65
[2019-05-06 00:10] VITALS: BP 107/67
[2019-05-06 08:12] LABS: BASOPHILS % (AUTO) 0.5 % (0.0-2.0); EOSINOPHILS % (AUTO) 1.8 % (1.0-6.0); HEMATOCRIT 32.5 % (41-53); HEMOGLOBIN 11.1 g/dL (13.5-17.5); LYMPHOCYTES # (AUTO) 1.4 K/uL (1.0-4.8); LYMPHOCYTES % (AUTO) 32.5 % (22.0-44.0); MEAN CORPUSCULAR HEMOGLOBIN 33.8 pg (26.0-34.0); MEAN CORPUSCULAR HGB CONC 34.2 G/dL (31.0-37.0); MEAN CORPUSCULAR VOLUME 99 fL (80-100); MONOCYTES # (AUTO) 0.7 K/uL (0.1-1.0); MONOCYTES % (AUTO) 15.9 % (2.0-9.0); NEUTROPHILS # (AUTO) 2.1 K/uL (1.8-7.7); NEUTROPHILS % (AUTO) 49.3 % (40.0-70.0); PLATELET COUNT (AUTO) 108 K/uL (150-450); RED BLOOD CELL COUNT(AUTO) 3.29 MIL/uL (4.50-5.90); RED CELL DISTRIBUTION WIDTH 14.3 % (11.5-14.5)
[2019-05-06 08:17] VITALS: BP 115/68
[2019-05-06 08:39] LABS: ALANINE AMINOTRANSFERASE 119 U/L (12-78); ALBUMIN 2.9 g/dL (3.4-5.0); ALKALINE PHOSPHATASE 48 U/L (46-116); ANION GAP 5 mmol/L (8-16); ASPARTATE AMINOTRANSFERASE 97 U/L (15-37); BILIRUBIN,TOTAL 0.4 mg/dL (0.1-1.0); CALCIUM, TOTAL 9.3 mg/dL (8.8-10.5); CARBON DIOXIDE 32 mmol/L (22-29); CHLORIDE 105 mmol/L (98-107); CHOL/HDL RATIO 3.4 (4.2-7.3); CHOLESTEROL 102 mg/dL (131-200); CREATININE 1.46 mg/dL (0.60-1.30); GLOMERULAR FILTR. RATE CALC 48 mL/min (>60); GLUCOSE,RANDOM 85 mg/dL (70-110); HDL CHOLESTEROL 30 mg/dL (40-60); LDL CHOL (CALC.) 62 mg/dL (0-130); POTASSIUM 5.1 mmol/L (3.5-5.1); SODIUM SERUM 142 mmol/L (136-145); THYROID STIMULATING HORMONE 5.01 uIU/mL (0.36-3.74); TOTAL PROTEIN, SERUM 7.5 g/dL (6.4-8.2); TRIGLYCERIDES 48 mg/dL (15-150); UREA NITROGEN, BLOOD 36 mg/dL (7-18)
[2019-05-06] MEDS: NALTREXONE HCL 50 MG TABLET PO SCH (08:54)
[2019-05-06] MEDS: HALOPERIDOL 2 MG TABLET PO SCH ×3 (08:54→16:38)
[2019-05-06] MEDS: DIVALPROEX SODIUM 500 MG ER TABLET PO SCH ×3 (08:55→16:38)
[2019-05-06] MEDS: TRIHEXYPHENIDYL HCL 2 MG TABLET PO SCH ×2 (08:55→16:38)
[2019-05-06] MEDS: MULTIVITAMINS WITH MINERALS, THERAPEUTIC TABLET PO SCH (08:55)
[2019-05-06 09:55] LABS: HEMOGLOBIN A1C < 3.6 % (4.5-6.2)
[2019-05-06 17:12] VITALS: BP 101/64
[2019-05-07 01:55] VITALS: BP 119/69
[2019-05-07 08:22] VITALS: BP 105/67
[2019-05-07 08:29] LABS: ALBUMIN 2.8 g/dL (3.4-5.0); CALCIUM, TOTAL 8.6 mg/dL (8.8-10.5); CREATININE 1.37 mg/dL (0.60-1.30); PHOSPHORUS 3.7 mg/dL (2.5-4.9)
[2019-05-07] MEDS: HALOPERIDOL 2 MG TABLET PO SCH ×3 (08:49→16:27)
[2019-05-07] MEDS: MULTIVITAMINS WITH IRON TABLET PO SCH (08:49)
[2019-05-07] MEDS: TRIHEXYPHENIDYL HCL 2 MG TABLET PO SCH ×2 (08:49→16:27)
[2019-05-07] MEDS: DIVALPROEX SODIUM 500 MG ER TABLET PO SCH ×3 (08:49→16:27)
[2019-05-07] MEDS: NALTREXONE HCL 50 MG TABLET PO SCH (08:49)
[2019-05-07 16:03] VITALS: BP 107/69
[2019-05-08 04:15] VITALS: BP 126/80
[2019-05-08] MEDS: DIVALPROEX SODIUM 500 MG ER TABLET PO SCH ×3 (08:21→16:31)
[2019-05-08] MEDS: TRIHEXYPHENIDYL HCL 2 MG TABLET PO SCH ×2 (08:21→16:31)
[2019-05-08] MEDS: NALTREXONE HCL 50 MG TABLET PO SCH (08:21)
[2019-05-08] MEDS: MULTIVITAMINS WITH IRON TABLET PO SCH (08:21)
[2019-05-08] MEDS: HALOPERIDOL 2 MG TABLET PO SCH ×3 (08:21→16:31)
[2019-05-08 08:37] VITALS: BP 111/64
[2019-05-08 16:06] VITALS: BP 111/72
[2019-05-09] MEDS ORDERED: LORazepam 2 MG TABLET PO SCH
[2019-05-09 07:33] VITALS: BP 116/68
[2019-05-09 08:18] VITALS: BP 112/70
[2019-05-09 08:39] LABS: FREE T4 (FREE THYROXINE) 1.11 ng/dL (0.76-1.46); THYROID STIMULATING HORMONE 3.87 uIU/mL (0.36-3.74)
[2019-05-09] MEDS: DIVALPROEX SODIUM 500 MG ER TABLET PO SCH ×3 (08:40→16:02)
[2019-05-09] MEDS: LORazepam 2 MG TABLET PO PRN ×2 (08:40→16:03)
[2019-05-09] MEDS: MULTIVITAMINS WITH IRON TABLET PO SCH (08:40)
[2019-05-09] MEDS: TRIHEXYPHENIDYL HCL 2 MG TABLET PO SCH ×2 (08:40→16:03)
[2019-05-09] MEDS: NALTREXONE HCL 50 MG TABLET PO SCH (08:40)
[2019-05-09] MEDS: HALOPERIDOL 2 MG TABLET PO SCH ×3 (08:40→16:03)
[2019-05-09 16:07] VITALS: BP 117/70
[2019-05-10 06:39] VITALS: BP 105/62
[2019-05-10 08:14] VITALS: BP 123/70
[2019-05-10] MEDS: HALOPERIDOL 2 MG TABLET PO SCH ×3 (08:26→16:09)
[2019-05-10] MEDS: TRIHEXYPHENIDYL HCL 2 MG TABLET PO SCH ×2 (08:26→16:09)
[2019-05-10] MEDS: DIVALPROEX SODIUM 500 MG ER TABLET PO SCH ×3 (08:26→16:09)
[2019-05-10] MEDS: NALTREXONE HCL 50 MG TABLET PO SCH (08:26)
[2019-05-10] MEDS: MULTIVITAMINS WITH IRON TABLET PO SCH (08:26)
[2019-05-10 16:06] VITALS: BP 115/67
[2019-05-11 00:53] VITALS: BP 118/70
[2019-05-11 08:49] VITALS: BP 111/69
[2019-05-11] MEDS: TRIHEXYPHENIDYL HCL 2 MG TABLET PO SCH ×2 (09:03→16:15)
[2019-05-11] MEDS: DIVALPROEX SODIUM 500 MG ER TABLET PO SCH ×3 (09:03→16:15)
[2019-05-11] MEDS: NALTREXONE HCL 50 MG TABLET PO SCH (09:03)
[2019-05-11] MEDS: HALOPERIDOL 2 MG TABLET PO SCH ×3 (09:03→16:15)
[2019-05-11] MEDS: MULTIVITAMINS WITH IRON TABLET PO SCH (09:03)
[2019-05-11 16:06] VITALS: BP 112/67
[2019-05-12 07:22] VITALS: BP 110/68
[2019-05-12 08:12] VITALS: BP 112/67
[2019-05-12] MEDS: HALOPERIDOL 2 MG TABLET PO SCH ×3 (08:15→16:21)
[2019-05-12] MEDS: DIVALPROEX SODIUM 500 MG ER TABLET PO SCH ×3 (08:16→16:21)
[2019-05-12] MEDS: MULTIVITAMINS WITH IRON TABLET PO SCH (08:16)
[2019-05-12] MEDS: TRIHEXYPHENIDYL HCL 2 MG TABLET PO SCH ×2 (08:16→16:21)
[2019-05-12] MEDS: NALTREXONE HCL 50 MG TABLET PO SCH (09:09)
[2019-05-12 16:01] VITALS: BP 112/65
[2019-05-13 01:05] VITALS: BP 102/68
[2019-05-13] MEDS: HALOPERIDOL 2 MG TABLET PO SCH ×3 (08:17→16:41)
[2019-05-13] MEDS: DIVALPROEX SODIUM 500 MG ER TABLET PO SCH ×3 (08:17→16:41)
[2019-05-13] MEDS: TRIHEXYPHENIDYL HCL 2 MG TABLET PO SCH ×2 (08:17→16:41)
[2019-05-13] MEDS: MULTIVITAMINS WITH IRON TABLET PO SCH (08:17)
[2019-05-13] MEDS: NALTREXONE HCL 50 MG TABLET PO SCH (08:17)
[2019-05-13 16:00] VITALS: BP 117/60
[2019-05-14] VITALS: BP 133/89
[2019-05-14 08:19] VITALS: BP 114/77
[2019-05-14] MEDS: HALOPERIDOL 2 MG TABLET PO SCH ×3 (08:28→16:26)
[2019-05-14] MEDS: NALTREXONE HCL 50 MG TABLET PO SCH (08:28)
[2019-05-14] MEDS: DIVALPROEX SODIUM 500 MG ER TABLET PO SCH ×3 (08:28→16:26)
[2019-05-14] MEDS: TRIHEXYPHENIDYL HCL 2 MG TABLET PO SCH ×2 (08:28→16:26)
[2019-05-14] MEDS: MULTIVITAMINS WITH IRON TABLET PO SCH (08:29)
[2019-05-14] MEDS: HALOPERIDOL DECANOATE 100 MG/ML VIAL IM SCH (09:00)
[2019-05-14 16:43] VITALS: BP 107/67
[2019-05-14] MEDS: MAG HYDROX/AL HYDROX/SIMETH ES 30 ML SUSPENSION UDCUP PO PRN (22:08)
[2019-05-15 00:07] VITALS: BP 103/64
[2019-05-15] MEDS: NALTREXONE HCL 50 MG TABLET PO SCH (08:03)
[2019-05-15] MEDS: DIVALPROEX SODIUM 500 MG ER TABLET PO SCH ×3 (08:03→16:29)
[2019-05-15] MEDS: TRIHEXYPHENIDYL HCL 2 MG TABLET PO SCH ×2 (08:03→16:28)
[2019-05-15] MEDS: MULTIVITAMINS WITH IRON TABLET PO SCH (08:03)
[2019-05-15] MEDS: HALOPERIDOL 2 MG TABLET PO SCH ×3 (08:03→16:29)
[2019-05-15 08:08] VITALS: BP 114/69
[2019-05-15 16:00] VITALS: BP 102/64
[2019-05-16 01:26] VITALS: BP 106/71
[2019-05-16] MEDS: MULTIVITAMINS WITH IRON TABLET PO SCH (07:46)
[2019-05-16] MEDS: NALTREXONE HCL 50 MG TABLET PO SCH (07:46)
[2019-05-16] MEDS: DIVALPROEX SODIUM 500 MG ER TABLET PO SCH ×3 (07:46→16:31)
[2019-05-16] MEDS: HALOPERIDOL 2 MG TABLET PO SCH ×3 (07:46→16:32)
[2019-05-16] MEDS: TRIHEXYPHENIDYL HCL 2 MG TABLET PO SCH ×2 (07:46→16:31)
[2019-05-16 08:05] VITALS: BP 111/77
[2019-05-16 16:07] VITALS: BP 139/97
[2019-05-17 02:50] VITALS: BP 128/72
[2019-05-17] MEDS: MULTIVITAMINS WITH IRON TABLET PO SCH (07:54)
[2019-05-17] MEDS: DIVALPROEX SODIUM 500 MG ER TABLET PO SCH ×3 (07:54→16:19)
[2019-05-17] MEDS: TRIHEXYPHENIDYL HCL 2 MG TABLET PO SCH ×2 (07:54→16:19)
[2019-05-17] MEDS: NALTREXONE HCL 50 MG TABLET PO SCH (07:54)
[2019-05-17] MEDS: HALOPERIDOL 2 MG TABLET PO SCH ×3 (07:54→16:19)
[2019-05-17 08:24] VITALS: BP 129/80
[2019-05-17 19:06] VITALS: BP 100/67
[2019-05-18 00:08] VITALS: BP 117/76
[2019-05-18 08:17] VITALS: BP 122/74
[2019-05-18] MEDS: TRIHEXYPHENIDYL HCL 2 MG TABLET PO SCH ×2 (08:20→16:28)
[2019-05-18] MEDS: MULTIVITAMINS WITH IRON TABLET PO SCH (08:20)
[2019-05-18] MEDS: NALTREXONE HCL 50 MG TABLET PO SCH (08:21)
[2019-05-18] MEDS: DIVALPROEX SODIUM 500 MG ER TABLET PO SCH ×3 (08:21→16:28)
[2019-05-18] MEDS: HALOPERIDOL 2 MG TABLET PO SCH ×3 (08:21→16:28)
[2019-05-18 16:07] VITALS: BP 116/68
[2019-05-18] MEDS: HALOPERIDOL 5 MG TABLET PO PRN (21:10)
[2019-05-19 00:59] VITALS: BP 107/66
[2019-05-19] MEDS: ZOLPIDEM TARTRATE 10 MG TABLET PO PRN (01:19)
[2019-05-19] MEDS: DIVALPROEX SODIUM 500 MG ER TABLET PO SCH ×3 (08:15→16:33)
[2019-05-19] MEDS: MULTIVITAMINS WITH IRON TABLET PO SCH (08:15)
[2019-05-19] MEDS: NALTREXONE HCL 50 MG TABLET PO SCH (08:15)
[2019-05-19] MEDS: HALOPERIDOL 2 MG TABLET PO SCH ×3 (08:15→16:33)
[2019-05-19] MEDS: TRIHEXYPHENIDYL HCL 2 MG TABLET PO SCH ×2 (08:15→16:33)
[2019-05-19 08:39] VITALS: BP 116/78
[2019-05-19 16:20] VITALS: BP 117/82
[2019-05-20 00:14] VITALS: BP 107/63
[2019-05-20] MEDS: LORazepam 2 MG TABLET PO PRN (02:52)
[2019-05-20] MEDS: TRIHEXYPHENIDYL HCL 2 MG TABLET PO SCH ×2 (08:22→16:18)
[2019-05-20] MEDS: DIVALPROEX SODIUM 500 MG ER TABLET PO SCH ×3 (08:22→16:18)
[2019-05-20] MEDS: MULTIVITAMINS WITH IRON TABLET PO SCH (08:22)
[2019-05-20] MEDS: HALOPERIDOL 2 MG TABLET PO SCH ×3 (08:22→16:19)
[2019-05-20] MEDS: NALTREXONE HCL 50 MG TABLET PO SCH (08:22)
[2019-05-20 08:25] VITALS: BP 109/72
[2019-05-20] MEDS ORDERED: TUBERCULIN, PURIFIED PROTEIN DERIVATIVE 5 TU/0.1 ML SYRINGE ID ONE (09:30)
[2019-05-20 16:04] VITALS: BP 109/61
[2019-05-21 05:08] VITALS: BP 115/72
[2019-05-21 08:13] VITALS: BP 116/72
[2019-05-21] MEDS: TRIHEXYPHENIDYL HCL 2 MG TABLET PO SCH ×2 (08:28→16:32)
[2019-05-21] MEDS: DIVALPROEX SODIUM 500 MG ER TABLET PO SCH ×3 (08:28→16:32)
[2019-05-21] MEDS: HALOPERIDOL 2 MG TABLET PO SCH ×3 (08:28→16:32)
[2019-05-21] MEDS: NALTREXONE HCL 50 MG TABLET PO SCH (08:53)
[2019-05-21] MEDS: MULTIVITAMINS WITH IRON TABLET PO SCH (08:54)
[2019-05-21 16:01] VITALS: BP 106/68
[2019-05-21] MEDS: LORazepam 2 MG TABLET PO PRN (19:52)
[2019-05-22 00:14] VITALS: BP 113/76
[2019-05-22] MEDS: DIVALPROEX SODIUM 500 MG ER TABLET PO SCH ×3 (08:05→16:26)
[2019-05-22] MEDS: NALTREXONE HCL 50 MG TABLET PO SCH (08:05)
[2019-05-22] MEDS: MULTIVITAMINS WITH IRON TABLET PO SCH (08:05)
[2019-05-22] MEDS: HALOPERIDOL 2 MG TABLET PO SCH ×3 (08:05→16:26)
[2019-05-22] MEDS: TRIHEXYPHENIDYL HCL 2 MG TABLET PO SCH ×2 (08:05→16:26)
[2019-05-22 08:30] VITALS: BP 115/88
[2019-05-22 16:03] VITALS: BP 113/70
[2019-05-22] MEDS: ZOLPIDEM TARTRATE 10 MG TABLET PO PRN (23:43)
[2019-05-23 00:09] VITALS: BP 106/66
[2019-05-23 08:21] VITALS: BP 118/77
[2019-05-23] MEDS: MULTIVITAMINS WITH IRON TABLET PO SCH (08:34)
[2019-05-23] MEDS: TRIHEXYPHENIDYL HCL 2 MG TABLET PO SCH ×2 (08:34→16:29)
[2019-05-23] MEDS: DIVALPROEX SODIUM 500 MG ER TABLET PO SCH ×3 (08:34→16:29)
[2019-05-23] MEDS: NALTREXONE HCL 50 MG TABLET PO SCH (08:34)
[2019-05-23] MEDS: HALOPERIDOL 2 MG TABLET PO SCH ×3 (08:34→16:29)
[2019-05-23] MEDS: HALOPERIDOL 5 MG TABLET PO PRN (11:15)
[2019-05-23 16:27] VITALS: BP 111/83
[2019-05-24 00:58] VITALS: BP 115/63
[2019-05-24 08:00] VITALS: BP 105/65
[2019-05-24] MEDS: TRIHEXYPHENIDYL HCL 2 MG TABLET PO SCH ×2 (08:29→16:14)
[2019-05-24] MEDS: DIVALPROEX SODIUM 500 MG ER TABLET PO SCH ×3 (08:29→16:14)
[2019-05-24] MEDS: MULTIVITAMINS WITH IRON TABLET PO SCH (08:29)
[2019-05-24] MEDS: NALTREXONE HCL 50 MG TABLET PO SCH (08:29)
[2019-05-24] MEDS: HALOPERIDOL 2 MG TABLET PO SCH ×3 (08:29→16:14)
[2019-05-24 16:06] VITALS: BP 121/72
[2019-05-25 00:11] VITALS: BP 112/71
[2019-05-25 08:16] VITALS: BP 115/76
[2019-05-25] MEDS: HALOPERIDOL 2 MG TABLET PO SCH ×3 (08:19→16:01)
[2019-05-25] MEDS: DIVALPROEX SODIUM 500 MG ER TABLET PO SCH ×3 (08:19→16:01)
[2019-05-25] MEDS: NALTREXONE HCL 50 MG TABLET PO SCH (08:19)
[2019-05-25] MEDS: MULTIVITAMINS WITH IRON TABLET PO SCH (08:19)
[2019-05-25] MEDS: TRIHEXYPHENIDYL HCL 2 MG TABLET PO SCH ×2 (08:19→16:01)
[2019-05-25 16:13] VITALS: BP 108/66
[2019-05-25] MEDS: MAG HYDROX/AL HYDROX/SIMETH ES 30 ML SUSPENSION UDCUP PO PRN (22:01)
[2019-05-26 08:26] VITALS: BP 112/73
[2019-05-26] MEDS: MULTIVITAMINS WITH IRON TABLET PO SCH (09:03)
[2019-05-26] MEDS: TRIHEXYPHENIDYL HCL 2 MG TABLET PO SCH ×2 (09:03→16:01)
[2019-05-26] MEDS: NALTREXONE HCL 50 MG TABLET PO SCH (09:04)
[2019-05-26] MEDS: HALOPERIDOL 2 MG TABLET PO SCH ×3 (09:04→16:01)
[2019-05-26] MEDS: DIVALPROEX SODIUM 500 MG ER TABLET PO SCH ×3 (09:04→16:01)
[2019-05-26 16:07] VITALS: BP 126/72
[2019-05-27 05:14] VITALS: BP 128/76
[2019-05-27 08:11] VITALS: BP 122/72
[2019-05-27] MEDS: DIVALPROEX SODIUM 500 MG ER TABLET PO SCH ×3 (08:22→16:00)
[2019-05-27] MEDS: TRIHEXYPHENIDYL HCL 2 MG TABLET PO SCH ×2 (08:22→16:00)
[2019-05-27] MEDS: MULTIVITAMINS WITH IRON TABLET PO SCH (08:22)
[2019-05-27] MEDS: HALOPERIDOL 2 MG TABLET PO SCH ×3 (08:22→16:00)
[2019-05-27] MEDS: NALTREXONE HCL 50 MG TABLET PO SCH (08:22)
[2019-05-27 17:18] VITALS: BP 106/64
[2019-05-27] MEDS: MAG HYDROX/AL HYDROX/SIMETH ES 30 ML SUSPENSION UDCUP PO PRN (17:51)
[2019-05-28 01:13] VITALS: BP 118/71
[2019-05-28 08:05] VITALS: BP 109/65
[2019-05-28] MEDS: DIVALPROEX SODIUM 500 MG ER TABLET PO SCH ×3 (09:03→16:17)
[2019-05-28] MEDS: TRIHEXYPHENIDYL HCL 2 MG TABLET PO SCH ×2 (09:03→16:17)
[2019-05-28] MEDS: MULTIVITAMINS WITH IRON TABLET PO SCH (09:03)
[2019-05-28] MEDS: HALOPERIDOL 2 MG TABLET PO SCH ×3 (09:03→16:17)
[2019-05-28] MEDS: NALTREXONE HCL 50 MG TABLET PO SCH (09:04)
[2019-05-28] MEDS: HALOPERIDOL DECANOATE 100 MG/ML VIAL IM SCH (09:05)
[2019-05-28 16:08] VITALS: BP 113/64
[2019-05-29 06:47] VITALS: BP 123/75
[2019-05-29 08:03] VITALS: BP 110/68
[2019-05-29] MEDS: HALOPERIDOL 2 MG TABLET PO SCH ×3 (08:48→16:30)
[2019-05-29] MEDS: MULTIVITAMINS WITH IRON TABLET PO SCH (08:48)
[2019-05-29] MEDS: DIVALPROEX SODIUM 500 MG ER TABLET PO SCH ×3 (08:48→16:30)
[2019-05-29] MEDS: NALTREXONE HCL 50 MG TABLET PO SCH (08:48)
[2019-05-29] MEDS: TRIHEXYPHENIDYL HCL 2 MG TABLET PO SCH ×2 (08:48→16:29)
[2019-05-29] MEDS: LORazepam 2 MG TABLET PO PRN (09:10)
[2019-05-29 16:16] VITALS: BP 103/64
[2019-05-30 00:17] VITALS: BP 129/70
[2019-05-30] MEDS: DIVALPROEX SODIUM 500 MG ER TABLET PO SCH ×3 (08:05→16:28)
[2019-05-30] MEDS: HALOPERIDOL 2 MG TABLET PO SCH ×3 (08:06→16:28)
[2019-05-30] MEDS: TRIHEXYPHENIDYL HCL 2 MG TABLET PO SCH ×2 (08:06→16:28)
[2019-05-30] MEDS: MULTIVITAMINS WITH IRON TABLET PO SCH (08:06)
[2019-05-30] MEDS: NALTREXONE HCL 50 MG TABLET PO SCH (08:06)
[2019-05-30 08:26] VITALS: BP 115/72
[2019-05-30 16:08] VITALS: BP 121/68
[2019-05-31 01:03] VITALS: BP 108/62
[2019-05-31] MEDS: MULTIVITAMINS WITH IRON TABLET PO SCH (08:18)
[2019-05-31] MEDS: HALOPERIDOL 2 MG TABLET PO SCH ×3 (08:18→16:20)
[2019-05-31] MEDS: TRIHEXYPHENIDYL HCL 2 MG TABLET PO SCH ×2 (08:18→16:20)
[2019-05-31] MEDS: DIVALPROEX SODIUM 500 MG ER TABLET PO SCH ×3 (08:18→16:20)
[2019-05-31] MEDS: NALTREXONE HCL 50 MG TABLET PO SCH (08:19)
[2019-05-31 08:36] VITALS: BP 109/75
[2019-05-31 16:08] VITALS: BP 102/70
[2019-06-01 00:44] VITALS: BP 104/62
[2019-06-01 00:46] VITALS: BP 110/68
[2019-06-01 08:00] VITALS: BP 115/65
[2019-06-01] MEDS: TRIHEXYPHENIDYL HCL 2 MG TABLET PO SCH ×2 (08:06→16:27)
[2019-06-01] MEDS: NALTREXONE HCL 50 MG TABLET PO SCH (08:06)
[2019-06-01] MEDS: HALOPERIDOL 2 MG TABLET PO SCH ×3 (08:06→16:27)
[2019-06-01] MEDS: DIVALPROEX SODIUM 500 MG ER TABLET PO SCH ×3 (08:06→16:27)
[2019-06-01] MEDS: MULTIVITAMINS WITH IRON TABLET PO SCH (08:06)
[2019-06-01 16:07] VITALS: BP 112/68
[2019-06-02 06:01] VITALS: BP 110/68
[2019-06-02 08:00] VITALS: BP 113/69
[2019-06-02] MEDS: NALTREXONE HCL 50 MG TABLET PO SCH (08:28)
[2019-06-02] MEDS: HALOPERIDOL 2 MG TABLET PO SCH ×3 (08:28→16:37)
[2019-06-02] MEDS: MULTIVITAMINS WITH IRON TABLET PO SCH (08:28)
[2019-06-02] MEDS: DIVALPROEX SODIUM 500 MG ER TABLET PO SCH ×3 (08:29→16:37)
[2019-06-02] MEDS: TRIHEXYPHENIDYL HCL 2 MG TABLET PO SCH ×2 (08:29→16:37)
[2019-06-02 16:01] VITALS: BP 116/72
[2019-06-03 04:10] VITALS: BP 111/70
[2019-06-03] MEDS: HALOPERIDOL 2 MG TABLET PO SCH ×3 (08:16→16:01)
[2019-06-03] MEDS: DIVALPROEX SODIUM 500 MG ER TABLET PO SCH ×3 (08:16→16:01)
[2019-06-03] MEDS: MULTIVITAMINS WITH IRON TABLET PO SCH (08:16)
[2019-06-03] MEDS: TRIHEXYPHENIDYL HCL 2 MG TABLET PO SCH ×2 (08:16→16:01)
[2019-06-03] MEDS: NALTREXONE HCL 50 MG TABLET PO SCH (08:17)
[2019-06-03 08:38] VITALS: BP 109/60
[2019-06-03 16:24] VITALS: BP 112/78
[2019-06-04 06:15] VITALS: BP 120/81
[2019-06-04 08:15] VITALS: BP 103/71
[2019-06-04] MEDS: DIVALPROEX SODIUM 500 MG ER TABLET PO SCH ×3 (08:34→16:28)
[2019-06-04] MEDS: MULTIVITAMINS WITH IRON TABLET PO SCH (08:34)
[2019-06-04] MEDS: NALTREXONE HCL 50 MG TABLET PO SCH (08:34)
[2019-06-04] MEDS: TRIHEXYPHENIDYL HCL 2 MG TABLET PO SCH ×2 (08:34→16:28)
[2019-06-04] MEDS: HALOPERIDOL 2 MG TABLET PO SCH ×3 (08:43→16:28)
[2019-06-04 16:01] VITALS: BP 105/64
[2019-06-05 01:07] VITALS: BP 102/64
[2019-06-05] MEDS: MULTIVITAMINS WITH IRON TABLET PO SCH (08:06)
[2019-06-05] MEDS: TRIHEXYPHENIDYL HCL 2 MG TABLET PO SCH ×2 (08:06→16:30)
[2019-06-05] MEDS: NALTREXONE HCL 50 MG TABLET PO SCH (08:06)
[2019-06-05] MEDS: HALOPERIDOL 2 MG TABLET PO SCH ×3 (08:06→16:30)
[2019-06-05] MEDS: DIVALPROEX SODIUM 500 MG ER TABLET PO SCH ×3 (08:09→16:30)
[2019-06-05 16:25] VITALS: BP 116/67
[2019-06-06 08:22] VITALS: BP 105/64
[2019-06-06] MEDS: MULTIVITAMINS WITH IRON TABLET PO SCH (08:56)
[2019-06-06] MEDS: DIVALPROEX SODIUM 500 MG ER TABLET PO SCH ×3 (08:56→16:30)
[2019-06-06] MEDS: TRIHEXYPHENIDYL HCL 2 MG TABLET PO SCH ×2 (08:56→16:30)
[2019-06-06] MEDS: HALOPERIDOL 2 MG TABLET PO SCH ×3 (08:57→16:30)
[2019-06-06] MEDS: NALTREXONE HCL 50 MG TABLET PO SCH (08:57)
[2019-06-06 15:53] VITALS: BP 101/68
[2019-06-06 16:00] VITALS: BP 101/68
[2019-06-07 00:20] VITALS: BP 105/69
[2019-06-07] MEDS: MULTIVITAMINS WITH IRON TABLET PO SCH (08:23)
[2019-06-07] MEDS: TRIHEXYPHENIDYL HCL 2 MG TABLET PO SCH ×2 (08:23→16:26)
[2019-06-07] MEDS: DIVALPROEX SODIUM 500 MG ER TABLET PO SCH ×3 (08:23→16:27)
[2019-06-07] MEDS: NALTREXONE HCL 50 MG TABLET PO SCH (08:24)
[2019-06-07] MEDS: HALOPERIDOL 2 MG TABLET PO SCH ×3 (08:24→16:27)
[2019-06-07 08:32] VITALS: BP 125/89
[2019-06-07 16:02] VITALS: BP 116/81
[2019-06-08 03:14] VITALS: BP 122/78
[2019-06-08 08:19] VITALS: BP 102/71
[2019-06-08] MEDS: TRIHEXYPHENIDYL HCL 2 MG TABLET PO SCH ×2 (10:20→16:51)
[2019-06-08] MEDS: DIVALPROEX SODIUM 500 MG ER TABLET PO SCH ×3 (10:21→16:51)
[2019-06-08] MEDS: HALOPERIDOL 2 MG TABLET PO SCH ×3 (10:21→16:51)
[2019-06-08] MEDS: MULTIVITAMINS WITH IRON TABLET PO SCH (10:21)
[2019-06-08] MEDS: NALTREXONE HCL 50 MG TABLET PO SCH (10:21)
[2019-06-08 16:01] VITALS: BP 112/73
[2019-06-09 06:41] VITALS: BP 109/67
[2019-06-09 08:09] VITALS: BP 109/69
[2019-06-09] MEDS: NALTREXONE HCL 50 MG TABLET PO SCH (08:15)
[2019-06-09] MEDS: TRIHEXYPHENIDYL HCL 2 MG TABLET PO SCH ×2 (08:15→16:06)
[2019-06-09] MEDS: MULTIVITAMINS WITH IRON TABLET PO SCH (08:15)
[2019-06-09] MEDS: DIVALPROEX SODIUM 500 MG ER TABLET PO SCH ×3 (08:16→16:06)
[2019-06-09] MEDS: HALOPERIDOL 2 MG TABLET PO SCH ×3 (08:16→16:06)
[2019-06-09 16:01] VITALS: BP 110/66
[2019-06-09] MEDS: ZOLPIDEM TARTRATE 10 MG TABLET PO PRN (20:48)
[2019-06-10 06:53] VITALS: BP 118/70
[2019-06-10] MEDS: NALTREXONE HCL 50 MG TABLET PO SCH (08:17)
[2019-06-10] MEDS: TRIHEXYPHENIDYL HCL 2 MG TABLET PO SCH ×2 (08:17→16:40)
[2019-06-10] MEDS: HALOPERIDOL 2 MG TABLET PO SCH ×3 (08:17→16:40)
[2019-06-10] MEDS: MULTIVITAMINS WITH IRON TABLET PO SCH (08:17)
[2019-06-10] MEDS: DIVALPROEX SODIUM 500 MG ER TABLET PO SCH ×3 (08:21→16:40)
[2019-06-10 08:31] VITALS: BP 107/71
[2019-06-10 16:02] VITALS: BP 102/70
[2019-06-11 03:45] VITALS: BP 110/72
[2019-06-11 08:02] VITALS: BP 107/68
[2019-06-11] MEDS: TRIHEXYPHENIDYL HCL 2 MG TABLET PO SCH ×2 (08:37→16:26)
[2019-06-11] MEDS: MULTIVITAMINS WITH IRON TABLET PO SCH (08:37)
[2019-06-11] MEDS: DIVALPROEX SODIUM 500 MG ER TABLET PO SCH ×3 (08:37→16:26)
[2019-06-11] MEDS: HALOPERIDOL DECANOATE 100 MG/ML VIAL IM SCH (08:37)
[2019-06-11] MEDS: HALOPERIDOL 2 MG TABLET PO SCH ×3 (08:38→16:26)
[2019-06-11] MEDS: NALTREXONE HCL 50 MG TABLET PO SCH (08:40)
[2019-06-11 16:04] VITALS: BP_SYST 119; BP_SYST 120; BP_DIAS 78; BP_DIAS 83
[2019-06-12 00:14] VITALS: BP 106/62
[2019-06-12 08:03] VITALS: BP 120/70
[2019-06-12] MEDS: HALOPERIDOL 2 MG TABLET PO SCH ×3 (08:49→16:23)
[2019-06-12] MEDS: MULTIVITAMINS WITH IRON TABLET PO SCH (08:49)
[2019-06-12] MEDS: TRIHEXYPHENIDYL HCL 2 MG TABLET PO SCH ×2 (08:49→16:24)
[2019-06-12] MEDS: NALTREXONE HCL 50 MG TABLET PO SCH (08:50)
[2019-06-12] MEDS: DIVALPROEX SODIUM 500 MG ER TABLET PO SCH ×3 (08:52→17:19)
[2019-06-12] MEDS ORDERED: HEPATITIS A VACCINE, INACTI [ADULT] 1,440 UNITS/ML VIAL IM ONE (14:30)
[2019-06-12 16:00] VITALS: BP 114/73
[2019-06-12] MEDS: ZOLPIDEM TARTRATE 10 MG TABLET PO PRN (22:33)
[2019-06-13 00:37] VITALS: BP 109/66
[2019-06-13 08:12] VITALS: BP 111/72
[2019-06-13] MEDS: NALTREXONE HCL 50 MG TABLET PO SCH (08:17)
[2019-06-13] MEDS: HALOPERIDOL 2 MG TABLET PO SCH ×2 (08:17→13:08)
[2019-06-13] MEDS: TRIHEXYPHENIDYL HCL 2 MG TABLET PO SCH (08:17)
[2019-06-13] MEDS: MULTIVITAMINS WITH IRON TABLET PO SCH (08:17)
[2019-06-13] MEDS: DIVALPROEX SODIUM 500 MG ER TABLET PO SCH ×2 (08:20→13:08)
[2019-06-13] MEDS ORDERED: HALO100A IM ×2 (09:32→12:54)
[2019-06-13] MEDS ORDERED: DIVA-78 PO (09:32)
[2019-06-13] MEDS ORDERED: HALO1TAB19 PO (09:32)
[2019-06-13] MEDS ORDERED: TRIH2TAB3 PO (09:47)
== END 2019-06-13 13:15 | disposition home or self-care (01) | DRG 885 ==
LOC: B3A 14:25 → B2X 14:47
PROVIDERS: ADMIT Psychiatry & Neurology Psychiatry; ATTEND Psychiatry & Neurology Psychiatry
PROC: 3E0234Z Introduction of Serum, Toxoid and Vaccine into Muscle, Percutaneous Approach (ICD-10-PCS; principal; 2019-05-12)
DX: F22 Delusional disorders (principal); B19.20 Unspecified viral hepatitis C without hepatic coma; E89.0 Postprocedural hypothyroidism; D64.9 Anemia, unspecified; Z79.899 Other long term (current) drug therapy; Z23 Encounter for immunization
CPT/HCPCS: 83036; 84439; 84443; 87081; 90632; J1631